=== PATIENT | female | born 1940 | race Caucasian/White ===

== ENCOUNTER 2018-10-07 11:09 | Outpatient (CLI) | payer MEDICARE ==
--- NOTE | 2018-10-07 11:47 | RAD ---
F8 views of the cervical spine INDICATION: Cervicalgia COMPARISON: None FINDINGS: There is prominent disc degenerative disease at C5-6 and C6-7. There is multilevel facet os teoarthritic change. There is very subtle anterior translation of C3 on C4 with flexion that reduces on neutral and extension positioning. No appreciable osseous neural foraminal narrowing is evident. L ateral masses are symmetric. Lung apices are clear. IMPRESSION: [id number] cervical spondylosis. There is mild anterior translation of C3 on C4 wit h flexion that reduces with neutral and extension positioning likely related to degenerative listhesi s.
== END 2018-10-07 11:10 | disposition home or self-care (01) ==
LOC: BICRAD 11:09
PROVIDERS: ATTEND Internal Medicine Rheumatology
DX: M54.2 Cervicalgia (principal); M47.812 Spondylosis without myelopathy or radiculopathy, cervical region
CPT/HCPCS: 72052

== ENCOUNTER 2018-10-11 13:30 | Outpatient (CLI) | payer MEDICARE ==
--- NOTE | 2018-10-11 14:20 | BD ---
EXAM: DEXA bone density examination HISTORY: 78-year-old postmenopausal female for screening COMPARISON: None FINDINGS: L1--bone mineral density 1.268 g/sq cm; T score 2.5 L2--bone mineral density 1.141 g/sq cm; T score 1.0 L3--bone mineral density 1.258 g/sq cm; T score 1.6 L4--bone mineral density 1.318 g/sq cm; T score 2.3 Total L1-L4--bone mineral density 1.248 g/sq cm; T score 1.8 Left femoral neck--bone mineral density0.671; T score -1.6 Total proximal left femur--bone mineral density 0.915; T score -0.2 IMPRESSION: Osteopenia of the left femoral neck. This patient has a 10 year WHO fracture risk of a ma ghislaine osteoporotic fracture of 25% and of a hip fracture of 14%.
== END 2018-10-11 13:31 | disposition home or self-care (01) ==
LOC: BICMAMMO 13:30
PROVIDERS: ATTEND Internal Medicine Rheumatology
DX: M85.852 Other specified disorders of bone density and structure, left thigh (principal)
CPT/HCPCS: 77080

== ENCOUNTER 2021-02-26 22:39 | Inpatient (IN) | payer MEDICARE ==
[2021-02-26 23:25] LABS: #Basophils 0.1 thou/uL (0.0-0.2); #Lymphocytes 0.7 thou/uL (1.20-3.40); #Monocytes 0.5 thou/uL (0.11-0.59); #Neutrophils 2.4 thou/uL (1.40-6.50); %Monocytes 12.5 % (0.0-10.0); %Neutrophils 65.5 % (42.0-75.0); Hemoglobin 13.3 g/dL (12.0-16.0); Mean Corpuscular HGB CONC 34.6 g/dL (32.0-36.0); Mean Corpuscular Hemoglobin 32.5 pg (27.0-31.0); Mean Platelet Volume 6.2 fL (7.4-10.4); Platelet Count 165 thou/uL (130-400); RBC Distribution Width 12.1 % (11.5-14.5); Red Blood Cell (RBC) Count 4.08 mill/uL (4.20-5.40); White Blood Cell (WBC) Count 3.6 thou/uL (4.8-10.8)
[2021-02-26 23:43] LABS: ALT (SGPT) 38 U/L (8-55); AST (SGOT) 59 U/L (5-34); Albumin 3.3 g/dL (3.4-4.8); Alkaline Phosphatase 84 U/L (40-110); Anion Gap 12 mmol/L (10-20); BUN (Urea Nitrogen) 8 mg/dL (9.8-20.1); Bilirubin, Total 0.5 mg/dL (0.2-1.2); Calc. Creatinine Clearance 0 mL/min (70-130); Calcium 8.1 mg/dL (7.8-10.44); Carbon Dioxide 24 mmol/L (23-31); Chloride 95 mmol/L (98-107); Globulin 2.3 g/dL (2.4-3.5); Glucose 118 mg/dL (83-110); Potassium 3.3 mmol/L (3.5-5.1); Protein, Total 5.6 g/dL (5.8-8.1); Sodium 128 mmol/L (136-145)
[2021-02-27] MEDS ORDERED: Aspirin 81 mg Enteric Coated Tablet ONE (02:31)
[2021-02-27] MEDS ORDERED: Dexamethasone 10 MG/ML VIAL ONE (02:31)
[2021-02-27] MEDS ORDERED: Enoxaparin Sodium 80 MG/0.8 ML SYRINGE ONE (02:56)
[2021-02-27] MEDS ORDERED: Aspirin Chewable 81 MG TAB ONE (02:56)
[2021-02-27 03:45] LABS: Troponin I Less than 0.010 ng/mL (< 0.028)
[2021-02-27 06:00] LABS: Troponin I Less than 0.010 ng/mL (< 0.028)
[2021-02-27 06:26] VITALS: BMI 29.8
[2021-02-27] MEDS ORDERED: Ondansetron ODT 4 MG TAB PO PRN (08:34)
[2021-02-27] MEDS ORDERED: Acetaminophen 650 MG Suppository PR PRN (08:34)
[2021-02-27] MEDS ORDERED: Ondansetron PF 4 MG/2 ML Vial IVP PRN (08:34)
[2021-02-27] MEDS ORDERED: Acetaminophen 325 MG TAB PO PRN (08:34)
[2021-02-27] MEDS ORDERED: Benzonatate 100 MG CAP PO PRN (08:40)
[2021-02-27] MEDS ORDERED: Potassium Chloride 20 MEQ TAB PO SCH (08:45)
[2021-02-27 09:33] LABS: CRP (Inflammatory) 10.13 mg/dL (= or < 0.5); Magnesium 2.1 mg/dL (1.6-2.6)
[2021-02-27] MEDS ORDERED: Iopamidol-370 76% 500 ML 1 ML ONE (09:52)
[2021-02-27] MEDS ORDERED: Potassium Chloride 20 MEQ TAB ONE (10:09)
[2021-02-27] MEDS ORDERED: Ascorbic Acid 500 mg Chewable Tablet ONE (10:11)
[2021-02-27] MEDS: Ascorbic Acid 500 mg Chewable Tablet PO SCH (10:24)
[2021-02-27] MEDS: Dexamethasone 6 MG in Sodium Chloride 0.9% 50 ML IVPB SCH ×2 (10:25→20:27)
[2021-02-27] MEDS ORDERED: REMDESIVIR 200 MG in Sodium Chloride 0.9% 250 ML 210 ML IV SCH (11:15)
[2021-02-27] MEDS: Enoxaparin Sodium 40 MG/0.4 ML SYRINGE SC SCH (20:18)
[2021-02-27] MEDS ORDERED: Enoxaparin Sodium 40 MG/0.4 ML SYRINGE SC SCH (21:00)
[2021-02-28 04:43] VITALS: TEMP 98.1
[2021-02-28 07:26] LABS: #Lymphocytes 0.8 thou/uL (1.20-3.40); #Monocytes 0.7 thou/uL (0.11-0.59); #Neutrophils 5.7 thou/uL (1.40-6.50); %Basophils 0.1 % (0.0-1.0); %Eosinophils 0.1 % (0.0-10.0); %Lymphocytes 10.9 % (21.0-51.0); Hemoglobin 14.5 g/dL (12.0-16.0); Mean Corpuscular HGB CONC 33.4 g/dL (32.0-36.0); Mean Corpuscular Hemoglobin 31.7 pg (27.0-31.0); Mean Corpuscular Volume 94.8 fL (78.0-98.0); Mean Platelet Volume 6.6 fL (7.4-10.4); Platelet Count 206 thou/uL (130-400); RBC Distribution Width 11.9 % (11.5-14.5); Red Blood Cell (RBC) Count 4.57 mill/uL (4.20-5.40); White Blood Cell (WBC) Count 7.2 thou/uL (4.8-10.8)
[2021-02-28 07:32] LABS: Anion Gap 14 mmol/L (10-20); BUN (Urea Nitrogen) 8 mg/dL (9.8-20.1); Calc. Creatinine Clearance 84 mL/min (70-130); Carbon Dioxide 24 mmol/L (23-31); Chloride 101 mmol/L (98-107); Glucose 124 mg/dL (83-110); Sodium 135 mmol/L (136-145)
[2021-02-28 08:06] VITALS: BP 114/68
[2021-02-28] MEDS: Ascorbic Acid 500 mg Chewable Tablet PO SCH (08:25)
[2021-02-28] MEDS: Enoxaparin Sodium 40 MG/0.4 ML SYRINGE SC SCH (08:26)
[2021-02-28] MEDS ORDERED: REMDESIVIR 100 MG in Sodium Chloride 0.9% 250 ML 230 ML IV SCH (11:15)
[2021-02-28] MEDS: Dexamethasone 6 MG in Sodium Chloride 0.9% 50 ML IVPB SCH (12:26)
[2021-03-01] MEDS ORDERED: Dexamethasone 4 MG TAB PO SCH (08:00)
[2021-03-01] MEDS ORDERED: Clopidogrel Bisulfate 75 MG TAB PO SCH (09:00)
[2021-03-01] MEDS ORDERED: Aspirin Chewable 81 MG TAB PO SCH (09:00)
== END 2021-02-28 17:18 | disposition home or self-care (01) | DRG 177 ==
LOC: ERS 22:39 → ERHOLD 02-27 01:02 → T4-B 02-27 15:56
PROVIDERS: ADMIT Internal Medicine; ATTEND Student in an Organized Health Care Education/Training Program
PROC: XW033E5 Introduction of Remdesivir Anti-infective into Peripheral Vein, Percutaneous Approach, New Technology Group 5 (ICD-10-PCS; principal; 2021-02-27)
PROC: 8E0ZXY6 Isolation (ICD-10-PCS; 2021-02-27)
DX: U07.1 COVID-19 (principal); J12.82 Pneumonia due to coronavirus disease 2019; E87.1 Hypo-osmolality and hyponatremia; E44.0 Moderate protein-calorie malnutrition; F41.9 Anxiety disorder, unspecified; Z96.651 Presence of right artificial knee joint; E87.6 Hypokalemia; Z96.641 Presence of right artificial hip joint; Z86.718 Personal history of other venous thrombosis and embolism; Z88.1 Allergy status to other antibiotic agents; Z79.82 Long term (current) use of aspirin; Z79.02 Long term (current) use of antithrombotics/antiplatelets; Z68.29 Body mass index [BMI] 29.0-29.9, adult
CPT/HCPCS: 36415; 71045; 71275; 80048; 80053; 82728; 83615; 83735; 83880; 84484; 85025; 85379; 86140; 93005; 96372; 96374; J1100; J1650; Q9967

== ENCOUNTER 2021-03-04 22:15 | Inpatient (IN) | payer MEDICARE ==
[~2021-03-04 22:15] MED LIST: Iopamidol-370 76% 500 ML 1 ML ONE
[2021-03-04 22:49] LABS: Hemoglobin 14.2 g/dL (12.0-16.0); Mean Corpuscular HGB CONC 34.5 g/dL (32.0-36.0); Mean Corpuscular Hemoglobin 32.5 pg (27.0-31.0); Mean Corpuscular Volume 94.2 fL (78.0-98.0); Mean Platelet Volume 5.9 fL (7.4-10.4); Platelet Count 323 thou/uL (130-400); Red Blood Cell (RBC) Count 4.36 mill/uL (4.20-5.40); White Blood Cell (WBC) Count 14.2 thou/uL (4.8-10.8)
[2021-03-04] MEDS ORDERED: Dexamethasone 10 MG/ML VIAL ONE (22:56)
[2021-03-04] MEDS ORDERED: Cefepime 2 GM VIAL ONE (22:57)
[2021-03-04 23:13] LABS: ALT (SGPT) 45 U/L (8-55); AST (SGOT) 43 U/L (5-34); Albumin 3.2 g/dL (3.4-4.8); Alkaline Phosphatase 117 U/L (40-110); Anion Gap 13 mmol/L (10-20); BUN (Urea Nitrogen) 8 mg/dL (9.8-20.1); Bilirubin, Total 0.7 mg/dL (0.2-1.2); Calc. Creatinine Clearance 0 mL/min (70-130); Carbon Dioxide 27 mmol/L (23-31); Chloride 96 mmol/L (98-107); Globulin 3.9 g/dL (2.4-3.5); Glucose 111 mg/dL (83-110); Protein, Total 7.1 g/dL (5.8-8.1); Sodium 131 mmol/L (136-145)
[2021-03-04 23:15] LABS: Band 12 % (5-11); Lymphocytes 12 % (21-51); MDiff Complete? YES; Monocytes 3 % (0-10); Neutrophil 73 % (42-75)
[2021-03-04] MEDS ORDERED: Dextrose 5% in Water 1,000 ML IV PRN (23:55)
[2021-03-04] MEDS ORDERED: Ondansetron PF 4 MG/2 ML Vial IVP PRN (23:55)
[2021-03-04] MEDS ORDERED: HYDROcodone/Acetaminophen 5/325 mg Tablet PO PRN (23:55)
[2021-03-04] MEDS ORDERED: Dextrose 50% Abboject 50 ML SYRINGE SLOW IVP PRN (23:55)
[2021-03-05] MEDS ORDERED: Enoxaparin Sodium 60 MG/0.6 ML SYRINGE SC SCH ×2 (00:30→09:00)
[2021-03-05 02:22] LABS: Hemoglobin 14.7 g/dL (12.0-16.0); Mean Corpuscular HGB CONC 33.9 g/dL (32.0-36.0); Mean Corpuscular Hemoglobin 32.2 pg (27.0-31.0); Mean Corpuscular Volume 94.9 fL (78.0-98.0); Mean Platelet Volume 5.9 fL (7.4-10.4); Platelet Count 247 thou/uL (130-400); RBC Distribution Width 12.2 % (11.5-14.5); Red Blood Cell (RBC) Count 4.56 mill/uL (4.20-5.40); White Blood Cell (WBC) Count 15.7 thou/uL (4.8-10.8)
[2021-03-05 02:26] LABS: Lactic Acid 2.6 mmol/L (0.5-2.2)
[2021-03-05 02:37] LABS: Anion Gap 12 mmol/L (10-20); BUN (Urea Nitrogen) 7 mg/dL (9.8-20.1); BUN/Creatinine Ratio 10.29; Calc. Creatinine Clearance 81 mL/min (70-130); Calcium 8.3 mg/dL (7.8-10.44); Carbon Dioxide 24 mmol/L (23-31); Chloride 102 mmol/L (98-107); Glucose 110 mg/dL (83-110); Phosphorus 2.7 mg/dL (2.3-4.7); Potassium 4.2 mmol/L (3.5-5.1); Sodium 134 mmol/L (136-145)
[2021-03-05] MEDS ORDERED: Enoxaparin Sodium 60 MG/0.6 ML SYRINGE ONE (02:37)
[2021-03-05 03:04] LABS: Band 17 % (5-11); Lymphocytes 3 % (21-51); MDiff Complete? YES; Monocytes 4 % (0-10); Neutrophil 76 % (42-75)
[2021-03-05] MEDS: Aspirin Chewable 81 MG TAB PO SCH (07:57)
[2021-03-05] MEDS: Clopidogrel Bisulfate 75 MG TAB PO SCH (07:58)
[2021-03-05] MEDS: Famotidine 20 MG TAB PO SCH ×2 (07:58→20:07)
[2021-03-05] MEDS ORDERED: BARICITINIB 2 MG TAB PO SCH (18:15)
[2021-03-05] MEDS: Dexamethasone 4 mg/ml Vial SLOW IVP SCH (20:07)
[2021-03-05] MEDS: Enoxaparin Sodium 40 MG/0.4 ML SYRINGE SC SCH (20:08)
[2021-03-06] MEDS: HumaLOG 300 UNITS/3 ML VIAL SC PRN (05:00)
[2021-03-06 07:18] LABS: ALT (SGPT) 46 U/L (8-55); AST (SGOT) 35 U/L (5-34); Albumin 2.9 g/dL (3.4-4.8); Alkaline Phosphatase 116 U/L (40-110); Anion Gap 14 mmol/L (10-20); BUN (Urea Nitrogen) 13 mg/dL (9.8-20.1); Bilirubin, Total 0.7 mg/dL (0.2-1.2); CRP (Inflammatory) 24.64 mg/dL (= or < 0.5); Calc. Creatinine Clearance 80 mL/min (70-130); Calcium 8.7 mg/dL (7.8-10.44); Carbon Dioxide 26 mmol/L (23-31); Chloride 102 mmol/L (98-107); Globulin 3.2 g/dL (2.4-3.5); Glucose 141 mg/dL (83-110); Potassium 4.5 mmol/L (3.5-5.1); Protein, Total 6.1 g/dL (5.8-8.1); Sodium 137 mmol/L (136-145)
[2021-03-06 07:25] LABS: Hemoglobin 13.6 g/dL (12.0-16.0); Mean Corpuscular HGB CONC 32.8 g/dL (32.0-36.0); Mean Corpuscular Hemoglobin 31.4 pg (27.0-31.0); Mean Corpuscular Volume 95.7 fL (78.0-98.0); Mean Platelet Volume 6.1 fL (7.4-10.4); Platelet Count 291 thou/uL (130-400); RBC Distribution Width 12.3 % (11.5-14.5); Red Blood Cell (RBC) Count 4.34 mill/uL (4.20-5.40); White Blood Cell (WBC) Count 13.1 thou/uL (4.8-10.8)
[2021-03-06] MEDS: Enoxaparin Sodium 40 MG/0.4 ML SYRINGE SC SCH ×2 (08:15→21:22)
[2021-03-06] MEDS: Dexamethasone 4 mg/ml Vial SLOW IVP SCH ×2 (08:15→21:22)
[2021-03-06] MEDS: Clopidogrel Bisulfate 75 MG TAB PO SCH (08:16)
[2021-03-06] MEDS: Aspirin Chewable 81 MG TAB PO SCH (08:16)
[2021-03-06] MEDS: Guaifenesin DM 100-10/5 ML UDCUP PO PRN ×2 (08:18→21:22)
[2021-03-06] MEDS: Famotidine 20 MG TAB PO SCH ×2 (08:18→21:23)
[2021-03-06 08:19] LABS: Band 8 % (5-11); Lymphocytes 6 % (21-51); MDiff Complete? YES; Monocytes 1 % (0-10); Myelocyte 1 % (0-0); Neutrophil 84 % (42-75); Platelet Morphology Comment Appears Adequate; RBC Morphology Normal
[2021-03-06] MEDS ORDERED: Colchicine 0.6 MG TAB PO SCH (12:30)
[2021-03-06] MEDS: BARICITINIB 2 MG TAB PO SCH (21:21)
[2021-03-06] MEDS: Colchicine 0.6 MG TAB PO SCH (21:21)
[2021-03-07] MEDS: Guaifenesin DM 100-10/5 ML UDCUP PO PRN ×2 (03:51→20:55)
[2021-03-07 06:29] LABS: #Lymphocytes 0.9 thou/uL (1.20-3.40); #Monocytes 0.6 thou/uL (0.11-0.59); #Neutrophils 13.6 thou/uL (1.40-6.50); %Basophils 0.3 % (0.0-1.0); %Eosinophils 0.1 % (0.0-10.0); %Lymphocytes 5.6 % (21.0-51.0); %Monocytes 3.7 % (0.0-10.0); %Neutrophils 90.3 % (42.0-75.0); Mean Corpuscular HGB CONC 33.2 g/dL (32.0-36.0); Mean Corpuscular Hemoglobin 31.6 pg (27.0-31.0); Mean Corpuscular Volume 95.3 fL (78.0-98.0); Mean Platelet Volume 6.1 fL (7.4-10.4); Platelet Count 303 thou/uL (130-400); RBC Distribution Width 12.1 % (11.5-14.5); Red Blood Cell (RBC) Count 4.11 mill/uL (4.20-5.40); White Blood Cell (WBC) Count 15.1 thou/uL (4.8-10.8)
[2021-03-07 06:43] LABS: ALT (SGPT) 39 U/L (8-55); AST (SGOT) 24 U/L (5-34); Albumin 2.7 g/dL (3.4-4.8); Alkaline Phosphatase 106 U/L (40-110); Anion Gap 12 mmol/L (10-20); BUN (Urea Nitrogen) 14 mg/dL (9.8-20.1); Bilirubin, Total 0.5 mg/dL (0.2-1.2); CRP (Inflammatory) 13.91 mg/dL (= or < 0.5); Calc. Creatinine Clearance 87 mL/min (70-130); Calcium 8.6 mg/dL (7.8-10.44); Carbon Dioxide 25 mmol/L (23-31); Chloride 105 mmol/L (98-107); Globulin 3.2 g/dL (2.4-3.5); Glucose 148 mg/dL (83-110); Potassium 4.5 mmol/L (3.5-5.1); Protein, Total 5.9 g/dL (5.8-8.1); Sodium 137 mmol/L (136-145)
[2021-03-07] MEDS: Aspirin Chewable 81 MG TAB PO SCH (08:16)
[2021-03-07] MEDS: Colchicine 0.6 MG TAB PO SCH ×2 (08:16→20:54)
[2021-03-07] MEDS: Enoxaparin Sodium 40 MG/0.4 ML SYRINGE SC SCH ×2 (08:17→20:55)
[2021-03-07] MEDS: Dexamethasone 4 mg/ml Vial SLOW IVP SCH ×2 (08:17→20:58)
[2021-03-07] MEDS: Clopidogrel Bisulfate 75 MG TAB PO SCH (08:17)
[2021-03-07] MEDS: Famotidine 20 MG TAB PO SCH ×2 (08:17→20:55)
[2021-03-07] MEDS: BARICITINIB 2 MG TAB PO SCH (20:54)
[2021-03-08 06:06] LABS: #Lymphocytes 0.7 thou/uL (1.20-3.40); #Monocytes 0.6 thou/uL (0.11-0.59); #Neutrophils 12.2 thou/uL (1.40-6.50); %Basophils 0.1 % (0.0-1.0); %Eosinophils 0.4 % (0.0-10.0); %Lymphocytes 4.9 % (21.0-51.0); %Monocytes 4.1 % (0.0-10.0); %Neutrophils 90.6 % (42.0-75.0); Hemoglobin 14.2 g/dL (12.0-16.0); Mean Corpuscular HGB CONC 33.9 g/dL (32.0-36.0); Mean Corpuscular Hemoglobin 32.4 pg (27.0-31.0); Mean Corpuscular Volume 95.7 fL (78.0-98.0); Mean Platelet Volume 6.3 fL (7.4-10.4); Platelet Count 294 thou/uL (130-400); RBC Distribution Width 12.1 % (11.5-14.5); Red Blood Cell (RBC) Count 4.37 mill/uL (4.20-5.40); White Blood Cell (WBC) Count 13.4 thou/uL (4.8-10.8)
[2021-03-08 06:29] LABS: ALT (SGPT) 44 U/L (8-55); AST (SGOT) 25 U/L (5-34); Albumin 2.8 g/dL (3.4-4.8); Alkaline Phosphatase 111 U/L (40-110); Anion Gap 14 mmol/L (10-20); BUN (Urea Nitrogen) 18 mg/dL (9.8-20.1); Bilirubin, Total 0.6 mg/dL (0.2-1.2); CRP (Inflammatory) 6.72 mg/dL (= or < 0.5); Calc. Creatinine Clearance 81 mL/min (70-130); Calcium 8.7 mg/dL (7.8-10.44); Carbon Dioxide 25 mmol/L (23-31); Chloride 105 mmol/L (98-107); Globulin 3.5 g/dL (2.4-3.5); Glucose 132 mg/dL (83-110); Potassium 4.8 mmol/L (3.5-5.1); Protein, Total 6.3 g/dL (5.8-8.1); Sodium 139 mmol/L (136-145)
[2021-03-08] MEDS: Guaifenesin DM 100-10/5 ML UDCUP PO PRN ×2 (08:39→21:34)
[2021-03-08] MEDS: Dexamethasone 4 mg/ml Vial SLOW IVP SCH ×2 (08:39→21:33)
[2021-03-08] MEDS: Aspirin Chewable 81 MG TAB PO SCH (08:40)
[2021-03-08] MEDS: Cholecalciferol (Vitamin D3) 400 UNITS TAB PO SCH (08:40)
[2021-03-08] MEDS: Enoxaparin Sodium 40 MG/0.4 ML SYRINGE SC SCH ×2 (08:40→21:34)
[2021-03-08] MEDS: Famotidine 20 MG TAB PO SCH ×2 (08:40→21:34)
[2021-03-08] MEDS: Ascorbic Acid 500 mg Chewable Tablet PO SCH (08:41)
[2021-03-08] MEDS: Clopidogrel Bisulfate 75 MG TAB PO SCH (08:41)
[2021-03-08] MEDS: Zinc Sulfate 220 MG CAP PO SCH (08:41)
[2021-03-08] MEDS: Colchicine 0.6 MG TAB PO SCH ×2 (08:42→21:34)
[2021-03-08] MEDS: BARICITINIB 2 MG TAB PO SCH (21:33)
[2021-03-09] MEDS: Enoxaparin Sodium 40 MG/0.4 ML SYRINGE SC SCH ×2 (07:37→20:54)
[2021-03-09] MEDS: Ascorbic Acid 500 mg Chewable Tablet PO SCH (07:38)
[2021-03-09] MEDS: Zinc Sulfate 220 MG CAP PO SCH (07:38)
[2021-03-09] MEDS: Aspirin Chewable 81 MG TAB PO SCH (07:38)
[2021-03-09] MEDS: Cholecalciferol (Vitamin D3) 400 UNITS TAB PO SCH (07:38)
[2021-03-09] MEDS: Guaifenesin DM 100-10/5 ML UDCUP PO PRN (07:38)
[2021-03-09] MEDS: Colchicine 0.6 MG TAB PO SCH ×2 (07:39→20:55)
[2021-03-09] MEDS: Acetaminophen 325 MG TAB PO PRN (07:39)
[2021-03-09] MEDS: Clopidogrel Bisulfate 75 MG TAB PO SCH (07:39)
[2021-03-09] MEDS: Famotidine 20 MG TAB PO SCH ×2 (07:40→20:54)
[2021-03-09] MEDS: Dexamethasone 4 mg/ml Vial SLOW IVP SCH ×2 (07:40→22:48)
[2021-03-09] MEDS: BARICITINIB 2 MG TAB PO SCH (20:54)
[2021-03-10 06:04] LABS: #Lymphocytes 0.6 thou/uL (1.20-3.40); #Monocytes 0.4 thou/uL (0.11-0.59); #Neutrophils 13.4 thou/uL (1.40-6.50); %Basophils 0.1 % (0.0-1.0); %Eosinophils 0.2 % (0.0-10.0); %Lymphocytes 4.1 % (21.0-51.0); %Monocytes 2.8 % (0.0-10.0); Hemoglobin 14.6 g/dL (12.0-16.0); Mean Corpuscular HGB CONC 33.1 g/dL (32.0-36.0); Mean Corpuscular Hemoglobin 31.3 pg (27.0-31.0); Mean Corpuscular Volume 94.5 fL (78.0-98.0); Mean Platelet Volume 6.1 fL (7.4-10.4); Platelet Count 356 thou/uL (130-400); RBC Distribution Width 12.1 % (11.5-14.5); Red Blood Cell (RBC) Count 4.67 mill/uL (4.20-5.40); White Blood Cell (WBC) Count 14.4 thou/uL (4.8-10.8)
[2021-03-10 06:31] LABS: ALT (SGPT) 42 U/L (8-55); AST (SGOT) 24 U/L (5-34); Albumin 2.9 g/dL (3.4-4.8); Alkaline Phosphatase 117 U/L (40-110); Anion Gap 13 mmol/L (10-20); BUN (Urea Nitrogen) 19 mg/dL (9.8-20.1); Bilirubin, Total 0.5 mg/dL (0.2-1.2); CRP (Inflammatory) 5.61 mg/dL (= or < 0.5); Calc. Creatinine Clearance 89 mL/min (70-130); Calcium 8.7 mg/dL (7.8-10.44); Carbon Dioxide 24 mmol/L (23-31); Chloride 102 mmol/L (98-107); Globulin 3.3 g/dL (2.4-3.5); Glucose 133 mg/dL (83-110); Potassium 4.6 mmol/L (3.5-5.1); Protein, Total 6.2 g/dL (5.8-8.1); Sodium 134 mmol/L (136-145)
[2021-03-10] MEDS: Zinc Sulfate 220 MG CAP PO SCH (08:15)
[2021-03-10] MEDS: Cholecalciferol (Vitamin D3) 400 UNITS TAB PO SCH (08:16)
[2021-03-10] MEDS: Famotidine 20 MG TAB PO SCH ×2 (08:16→20:26)
[2021-03-10] MEDS: Aspirin Chewable 81 MG TAB PO SCH (08:16)
[2021-03-10] MEDS: Ascorbic Acid 500 mg Chewable Tablet PO SCH (08:16)
[2021-03-10] MEDS: Dexamethasone 4 mg/ml Vial SLOW IVP SCH (08:17)
[2021-03-10] MEDS: Clopidogrel Bisulfate 75 MG TAB PO SCH (08:17)
[2021-03-10] MEDS: Colchicine 0.6 MG TAB PO SCH ×2 (08:17→20:25)
[2021-03-10] MEDS: Enoxaparin Sodium 40 MG/0.4 ML SYRINGE SC SCH ×2 (08:18→20:25)
[2021-03-10] MEDS: HumaLOG 300 UNITS/3 ML VIAL SC PRN (17:37)
[2021-03-10] MEDS: BARICITINIB 2 MG TAB PO SCH (20:25)
[2021-03-11 07:40] LABS: ALT (SGPT) 44 U/L (8-55); AST (SGOT) 32 U/L (5-34); Albumin 2.7 g/dL (3.4-4.8); Alkaline Phosphatase 108 U/L (40-110); Anion Gap 12 mmol/L (10-20); BUN (Urea Nitrogen) 22 mg/dL (9.8-20.1); Bilirubin, Total 0.7 mg/dL (0.2-1.2); CRP (Inflammatory) 5.16 mg/dL (= or < 0.5); Calc. Creatinine Clearance 91 mL/min (70-130); Calcium 8.6 mg/dL (7.8-10.44); Carbon Dioxide 27 mmol/L (23-31); Chloride 101 mmol/L (98-107); Globulin 3.4 g/dL (2.4-3.5); Glucose 83 mg/dL (83-110); Potassium 4.5 mmol/L (3.5-5.1); Protein, Total 6.1 g/dL (5.8-8.1); Sodium 135 mmol/L (136-145)
[2021-03-11 07:51] LABS: Hemoglobin 15.4 g/dL (12.0-16.0); Mean Corpuscular Hemoglobin 31.6 pg (27.0-31.0); Mean Corpuscular Volume 95.6 fL (78.0-98.0); Mean Platelet Volume 7.1 fL (7.4-10.4); Platelet Count 379 thou/uL (130-400); RBC Distribution Width 12.4 % (11.5-14.5); Red Blood Cell (RBC) Count 4.89 mill/uL (4.20-5.40); White Blood Cell (WBC) Count 17.9 thou/uL (4.8-10.8)
[2021-03-11] MEDS: Colchicine 0.6 MG TAB PO SCH ×2 (08:18→20:20)
[2021-03-11] MEDS: Aspirin Chewable 81 MG TAB PO SCH (08:18)
[2021-03-11] MEDS: Zinc Sulfate 220 MG CAP PO SCH (08:18)
[2021-03-11] MEDS: Cholecalciferol (Vitamin D3) 400 UNITS TAB PO SCH (08:18)
[2021-03-11] MEDS: Famotidine 20 MG TAB PO SCH ×2 (08:19→20:22)
[2021-03-11] MEDS: Enoxaparin Sodium 40 MG/0.4 ML SYRINGE SC SCH ×2 (08:19→20:21)
[2021-03-11] MEDS: Clopidogrel Bisulfate 75 MG TAB PO SCH (08:19)
[2021-03-11] MEDS: Dexamethasone 4 mg/ml Vial SLOW IVP SCH (08:20)
[2021-03-11] MEDS: Ascorbic Acid 500 mg Chewable Tablet PO SCH (08:21)
[2021-03-11 11:02] LABS: Band 5 % (5-11); Lymphocytes 7 % (21-51); MDiff Complete? YES; Monocytes 3 % (0-10); Neutrophil 85 % (42-75); Platelet Morphology Comment Appears Adequate; Vacuoles SLIGHT
[2021-03-11] MEDS: BARICITINIB 2 MG TAB PO SCH (20:21)
[2021-03-11] MEDS: Zolpidem Tartrate 5 MG TAB PO PRN (20:22)
[2021-03-12 06:28] LABS: #Eosinphils 0.1 thou/uL (0.0-0.7); #Lymphocytes 1.5 thou/uL (1.20-3.40); #Monocytes 0.8 thou/uL (0.11-0.59); #Neutrophils 14.7 thou/uL (1.40-6.50); %Basophils 0.1 % (0.0-1.0); %Eosinophils 0.6 % (0.0-10.0); %Lymphocytes 8.5 % (21.0-51.0); %Monocytes 4.4 % (0.0-10.0); %Neutrophils 86.5 % (42.0-75.0); Hemoglobin 15.5 g/dL (12.0-16.0); Mean Corpuscular HGB CONC 33.3 g/dL (32.0-36.0); Mean Corpuscular Hemoglobin 31.7 pg (27.0-31.0); Mean Corpuscular Volume 95.2 fL (78.0-98.0); Mean Platelet Volume 6.4 fL (7.4-10.4); Platelet Count 393 thou/uL (130-400); RBC Distribution Width 12.2 % (11.5-14.5); Red Blood Cell (RBC) Count 4.88 mill/uL (4.20-5.40)
[2021-03-12] MEDS: Cholecalciferol (Vitamin D3) 400 UNITS TAB PO SCH (08:53)
[2021-03-12] MEDS: Zinc Sulfate 220 MG CAP PO SCH (08:53)
[2021-03-12] MEDS: Clopidogrel Bisulfate 75 MG TAB PO SCH (08:53)
[2021-03-12] MEDS: Ascorbic Acid 500 mg Chewable Tablet PO SCH (08:53)
[2021-03-12] MEDS: Aspirin Chewable 81 MG TAB PO SCH (08:53)
[2021-03-12] MEDS: Famotidine 20 MG TAB PO SCH ×2 (08:54→21:35)
[2021-03-12] MEDS: Colchicine 0.6 MG TAB PO SCH ×2 (08:54→21:35)
[2021-03-12] MEDS: Enoxaparin Sodium 40 MG/0.4 ML SYRINGE SC SCH ×2 (08:54→21:34)
[2021-03-12] MEDS: Dexamethasone 4 mg/ml Vial SLOW IVP SCH ×2 (08:55→21:35)
[2021-03-12 09:02] LABS: ALT (SGPT) 52 U/L (8-55); AST (SGOT) 32 U/L (5-34); Alkaline Phosphatase 125 U/L (40-110); Anion Gap 12 mmol/L (10-20); BUN (Urea Nitrogen) 23 mg/dL (9.8-20.1); Bilirubin, Total 0.6 mg/dL (0.2-1.2); CRP (Inflammatory) 12.97 mg/dL (= or < 0.5); Calc. Creatinine Clearance 79 mL/min (70-130); Calcium 8.9 mg/dL (7.8-10.44); Carbon Dioxide 30 mmol/L (23-31); Chloride 100 mmol/L (98-107); Globulin 3.5 g/dL (2.4-3.5); Glucose 94 mg/dL (83-110); Potassium 4.3 mmol/L (3.5-5.1); Protein, Total 6.5 g/dL (5.8-8.1); Sodium 138 mmol/L (136-145)
[2021-03-12 16:09] LABS: Phosphorus 3.6 mg/dL (2.3-4.7)
[2021-03-12] MEDS: BARICITINIB 2 MG TAB PO SCH (21:34)
[2021-03-12] MEDS: Zolpidem Tartrate 5 MG TAB PO PRN (21:36)
[2021-03-13 09:12] LABS: #Lymphocytes 0.8 thou/uL (1.20-3.40); #Monocytes 0.9 thou/uL (0.11-0.59); #Neutrophils 14.3 thou/uL (1.40-6.50); %Basophils 0.1 % (0.0-1.0); %Eosinophils 0.2 % (0.0-10.0); %Lymphocytes 5.2 % (21.0-51.0); %Monocytes 5.4 % (0.0-10.0); %Neutrophils 89.1 % (42.0-75.0); Hemoglobin 15.1 g/dL (12.0-16.0); Mean Corpuscular HGB CONC 33.1 g/dL (32.0-36.0); Mean Corpuscular Hemoglobin 31.7 pg (27.0-31.0); Mean Corpuscular Volume 95.8 fL (78.0-98.0); Mean Platelet Volume 6.7 fL (7.4-10.4); Platelet Count 384 thou/uL (130-400); RBC Distribution Width 12.5 % (11.5-14.5); Red Blood Cell (RBC) Count 4.75 mill/uL (4.20-5.40); White Blood Cell (WBC) Count 16.1 thou/uL (4.8-10.8)
[2021-03-13] MEDS: Enoxaparin Sodium 40 MG/0.4 ML SYRINGE SC SCH ×2 (09:18→21:32)
[2021-03-13] MEDS: Famotidine 20 MG TAB PO SCH ×2 (09:18→21:32)
[2021-03-13] MEDS: Aspirin Chewable 81 MG TAB PO SCH (09:18)
[2021-03-13] MEDS: Cholecalciferol (Vitamin D3) 400 UNITS TAB PO SCH (09:18)
[2021-03-13] MEDS: Colchicine 0.6 MG TAB PO SCH (09:18)
[2021-03-13] MEDS: Clopidogrel Bisulfate 75 MG TAB PO SCH (09:18)
[2021-03-13] MEDS: Ascorbic Acid 500 mg Chewable Tablet PO SCH (09:18)
[2021-03-13] MEDS: Zinc Sulfate 220 MG CAP PO SCH (09:18)
[2021-03-13] MEDS: Dexamethasone 4 mg/ml Vial SLOW IVP SCH ×2 (09:19→21:32)
[2021-03-13] MEDS: Mometasone 200 MCG/Formoterol 5 MCG 120 PUFF INHALER INH SCH ×2 (09:19→20:33)
[2021-03-13] MEDS ORDERED: Ipratropium Bromide 2.5 ml Neb NEB PRN (09:23)
[2021-03-13] MEDS: BARICITINIB 2 MG TAB PO SCH (21:32)
[2021-03-13] MEDS: Zolpidem Tartrate 5 MG TAB PO PRN (21:32)
[2021-03-14 07:17] LABS: ALT (SGPT) 42 U/L (8-55); AST (SGOT) 22 U/L (5-34); Albumin 2.9 g/dL (3.4-4.8); Alkaline Phosphatase 108 U/L (40-110); Anion Gap 15 mmol/L (10-20); BUN (Urea Nitrogen) 33 mg/dL (9.8-20.1); Bilirubin, Total 0.7 mg/dL (0.2-1.2); Calc. Creatinine Clearance 79 mL/min (70-130); Carbon Dioxide 25 mmol/L (23-31); Chloride 104 mmol/L (98-107); Globulin 3.4 g/dL (2.4-3.5); Glucose 137 mg/dL (83-110); Potassium 4.6 mmol/L (3.5-5.1); Protein, Total 6.3 g/dL (5.8-8.1); Sodium 139 mmol/L (136-145)
[2021-03-14] MEDS: Mometasone 200 MCG/Formoterol 5 MCG 120 PUFF INHALER INH SCH ×2 (07:17→17:15)
[2021-03-14] MEDS: Ascorbic Acid 500 mg Chewable Tablet PO SCH (09:53)
[2021-03-14] MEDS: Dexamethasone 4 mg/ml Vial SLOW IVP SCH ×2 (09:53→21:24)
[2021-03-14] MEDS: Famotidine 20 MG TAB PO SCH ×2 (09:53→21:24)
[2021-03-14] MEDS: Cholecalciferol (Vitamin D3) 400 UNITS TAB PO SCH (09:53)
[2021-03-14] MEDS: Zinc Sulfate 220 MG CAP PO SCH (09:53)
[2021-03-14] MEDS: Enoxaparin Sodium 40 MG/0.4 ML SYRINGE SC SCH ×2 (09:53→21:24)
[2021-03-14] MEDS: Aspirin Chewable 81 MG TAB PO SCH (09:53)
[2021-03-14] MEDS: HumaLOG 300 UNITS/3 ML VIAL SC PRN (11:35)
[2021-03-14] MEDS: Ipratropium Bromide 2.5 ml Neb NEB SCH ×2 (11:54→18:39)
[2021-03-14] MEDS: Metoprolol Tartrate 25 MG TAB PO SCH (14:56)
[2021-03-14] MEDS: BARICITINIB 2 MG TAB PO SCH (21:24)
[2021-03-14] MEDS: ALPRAZolam 0.25 MG TAB PO PRN (21:24)
[2021-03-14] MEDS: Zolpidem Tartrate 5 MG TAB PO PRN (23:09)
[2021-03-15] MEDS: Zinc Sulfate 220 MG CAP PO SCH (09:31)
[2021-03-15] MEDS: Ascorbic Acid 500 mg Chewable Tablet PO SCH (09:31)
[2021-03-15] MEDS: Metoprolol Tartrate 25 MG TAB PO SCH ×2 (09:31→20:09)
[2021-03-15] MEDS: Aspirin Chewable 81 MG TAB PO SCH (09:32)
[2021-03-15] MEDS: Famotidine 20 MG TAB PO SCH ×2 (09:32→20:09)
[2021-03-15] MEDS: Cholecalciferol (Vitamin D3) 400 UNITS TAB PO SCH (09:32)
[2021-03-15] MEDS: Enoxaparin Sodium 40 MG/0.4 ML SYRINGE SC SCH ×2 (09:32→20:07)
[2021-03-15] MEDS: Dexamethasone 4 mg/ml Vial SLOW IVP SCH ×2 (09:33→20:07)
[2021-03-15] MEDS: Mometasone 200 MCG/Formoterol 5 MCG 120 PUFF INHALER INH SCH ×2 (09:36→19:48)
[2021-03-15] MEDS: ALPRAZolam 0.25 MG TAB PO PRN ×2 (11:32→20:08)
[2021-03-15] MEDS: Ipratropium Bromide 2.5 ml Neb NEB SCH ×3 (13:32→19:48)
[2021-03-15] MEDS: Zolpidem Tartrate 5 MG TAB PO PRN (20:08)
[2021-03-15] MEDS: BARICITINIB 2 MG TAB PO SCH (20:13)
[2021-03-16] MEDS: Ipratropium Bromide 2.5 ml Neb NEB SCH ×3 (08:18→18:44)
[2021-03-16 08:25] LABS: Actual Bicarbonate (HCO3a) 27.4 mEq/L (22-28); Base Excess (BEa) 0.6 mEq/L (-2.0 to +3.0); CO2 Tension 52.1 mmHg (35.0-45.0); Calcium, Ionized (arterial) 1.29 mmol/L (1.12-1.30); Carboxyhemoglobin (COHb) 1.3 gm% (0.0-3.0); O2 Tension (PaO2), arterial 70.5 mmHg (> 70.0); Potassium - ABG Lab 4.77 mmol/L (3.70-5.30); pH, Arterial 7.34 (7.35-7.45)
[2021-03-16 08:27] LABS: Puncture Site RRA
[2021-03-16 08:28] LABS: ALV-art Gradient 327.825 mmHg (0-20)
[2021-03-16] MEDS: Mometasone 200 MCG/Formoterol 5 MCG 120 PUFF INHALER INH SCH ×2 (08:30→18:59)
[2021-03-16] MEDS: Ascorbic Acid 500 mg Chewable Tablet PO SCH (10:37)
[2021-03-16] MEDS: Cholecalciferol (Vitamin D3) 400 UNITS TAB PO SCH (10:37)
[2021-03-16] MEDS: Aspirin Chewable 81 MG TAB PO SCH (10:38)
[2021-03-16] MEDS: Enoxaparin Sodium 40 MG/0.4 ML SYRINGE SC SCH ×2 (10:38→20:29)
[2021-03-16] MEDS: Famotidine 20 MG TAB PO SCH ×2 (10:38→20:29)
[2021-03-16] MEDS: Metoprolol Tartrate 25 MG TAB PO SCH ×2 (10:38→20:28)
[2021-03-16] MEDS: Dexamethasone 4 mg/ml Vial SLOW IVP SCH ×2 (10:39→20:30)
[2021-03-16] MEDS: Zinc Sulfate 220 MG CAP PO SCH (10:39)
[2021-03-16] MEDS: Vancomycin HCl 750 MG in Sodium Chloride 0.9% 250 ML 250 ML IVPB SCH (16:44)
[2021-03-16] MEDS: ALPRAZolam 0.25 MG TAB PO SCH ×2 (16:58→20:28)
[2021-03-16] MEDS: BARICITINIB 2 MG TAB PO SCH (20:28)
[2021-03-16] MEDS: Cefepime 2 GM in Sodium Chloride 0.9% 100 ML IVPB SCH (20:36)
[2021-03-16] MEDS ORDERED: Vancomycin 1 GM in Premix Bag 1 BAG IVPB SCH (21:00)
[2021-03-17] MEDS: Vancomycin HCl 750 MG in Sodium Chloride 0.9% 250 ML 250 ML IVPB SCH ×2 (03:26→14:23)
[2021-03-17 04:20] LABS: #Lymphocytes 0.8 thou/uL (1.20-3.40); #Monocytes 0.8 thou/uL (0.11-0.59); #Neutrophils 13.2 thou/uL (1.40-6.50); %Basophils 0.1 % (0.0-1.0); %Eosinophils 0.2 % (0.0-10.0); %Lymphocytes 5.7 % (21.0-51.0); Hemoglobin 14.5 g/dL (12.0-16.0); Mean Corpuscular HGB CONC 32.2 g/dL (32.0-36.0); Mean Corpuscular Hemoglobin 30.8 pg (27.0-31.0); Mean Corpuscular Volume 95.6 fL (78.0-98.0); Mean Platelet Volume 7.1 fL (7.4-10.4); Platelet Count 333 thou/uL (130-400); RBC Distribution Width 12.3 % (11.5-14.5); Red Blood Cell (RBC) Count 4.69 mill/uL (4.20-5.40); White Blood Cell (WBC) Count 14.8 thou/uL (4.8-10.8)
[2021-03-17 04:40] LABS: Anion Gap 12 mmol/L (10-20); BUN (Urea Nitrogen) 35 mg/dL (9.8-20.1); Calc. Creatinine Clearance 85 mL/min (70-130); Calcium 8.9 mg/dL (7.8-10.44); Carbon Dioxide 28 mmol/L (23-31); Chloride 107 mmol/L (98-107); Glucose 142 mg/dL (83-110); Potassium 4.5 mmol/L (3.5-5.1); Sodium 142 mmol/L (136-145)
[2021-03-17] MEDS: Cholecalciferol (Vitamin D3) 400 UNITS TAB PO SCH (07:58)
[2021-03-17] MEDS: Ascorbic Acid 500 mg Chewable Tablet PO SCH (07:58)
[2021-03-17] MEDS: Zinc Sulfate 220 MG CAP PO SCH (07:58)
[2021-03-17] MEDS: Aspirin Chewable 81 MG TAB PO SCH (07:58)
[2021-03-17] MEDS: Metoprolol Tartrate 25 MG TAB PO SCH ×2 (07:58→21:50)
[2021-03-17] MEDS: Famotidine 20 MG TAB PO SCH ×2 (07:58→21:50)
[2021-03-17] MEDS: ALPRAZolam 0.25 MG TAB PO SCH ×2 (07:58→21:50)
[2021-03-17] MEDS: Enoxaparin Sodium 40 MG/0.4 ML SYRINGE SC SCH ×2 (07:59→21:51)
[2021-03-17] MEDS: Dexamethasone 4 mg/ml Vial SLOW IVP SCH ×2 (07:59→21:51)
[2021-03-17] MEDS: Mometasone 200 MCG/Formoterol 5 MCG 120 PUFF INHALER INH SCH ×2 (08:36→19:26)
[2021-03-17] MEDS: Ipratropium Bromide 2.5 ml Neb NEB SCH ×3 (08:36→19:17)
[2021-03-17] MEDS: Cefepime 2 GM in Sodium Chloride 0.9% 100 ML IVPB SCH ×2 (09:59→21:51)
[2021-03-17] MEDS ORDERED: Zolpidem Tartrate 5 MG TAB PO PRN (13:11)
[2021-03-17] MEDS: BARICITINIB 2 MG TAB PO SCH (21:50)
[2021-03-18 02:15] LABS: #Basophils 0.1 thou/uL (0.0-0.2); #Lymphocytes 0.7 thou/uL (1.20-3.40); #Monocytes 0.6 thou/uL (0.11-0.59); #Neutrophils 14.3 thou/uL (1.40-6.50); %Basophils 0.4 % (0.0-1.0); %Eosinophils 0.1 % (0.0-10.0); %Lymphocytes 4.4 % (21.0-51.0); %Monocytes 4.1 % (0.0-10.0); Hemoglobin 14.6 g/dL (12.0-16.0); Mean Corpuscular HGB CONC 33.3 g/dL (32.0-36.0); Mean Corpuscular Volume 96.1 fL (78.0-98.0); Mean Platelet Volume 7.1 fL (7.4-10.4); Platelet Count 321 thou/uL (130-400); RBC Distribution Width 12.4 % (11.5-14.5); Red Blood Cell (RBC) Count 4.56 mill/uL (4.20-5.40); White Blood Cell (WBC) Count 15.7 thou/uL (4.8-10.8)
[2021-03-18 02:33] LABS: Vancomycin, Trough 7.4 ug/mL
[2021-03-18 02:39] LABS: ALT (SGPT) 58 U/L (8-55); AST (SGOT) 28 U/L (5-34); Albumin 3.1 g/dL (3.4-4.8); Alkaline Phosphatase 88 U/L (40-110); Anion Gap 11 mmol/L (10-20); BUN (Urea Nitrogen) 33 mg/dL (9.8-20.1); Bilirubin, Total 0.9 mg/dL (0.2-1.2); CRP (Inflammatory) Less than 0.50 mg/dL (= or < 0.5); Calc. Creatinine Clearance 85 mL/min (70-130); Calcium 8.9 mg/dL (7.8-10.44); Carbon Dioxide 28 mmol/L (23-31); Chloride 108 mmol/L (98-107); Globulin 2.6 g/dL (2.4-3.5); Glucose 149 mg/dL (83-110); Potassium 4.7 mmol/L (3.5-5.1); Protein, Total 5.7 g/dL (5.8-8.1); Sodium 142 mmol/L (136-145)
[2021-03-18] MEDS: Vancomycin HCl 1.25 GM in Sodium Chloride 0.9% 250 ML 250 ML IVPB SCH ×2 (03:11→17:13)
[2021-03-18] MEDS: Cefepime 2 GM in Sodium Chloride 0.9% 100 ML IVPB SCH ×2 (09:57→20:46)
[2021-03-18] MEDS: Enoxaparin Sodium 40 MG/0.4 ML SYRINGE SC SCH ×2 (09:57→20:34)
[2021-03-18] MEDS: Dexamethasone 4 mg/ml Vial SLOW IVP SCH ×2 (09:57→20:34)
[2021-03-18] MEDS: Zinc Sulfate 220 MG CAP PO SCH (09:58)
[2021-03-18] MEDS: Ascorbic Acid 500 mg Chewable Tablet PO SCH (09:58)
[2021-03-18] MEDS: Saccharomyces boulardii 250 MG CAP PO SCH (09:58)
[2021-03-18] MEDS: Famotidine 20 MG TAB PO SCH ×2 (09:58→20:33)
[2021-03-18] MEDS: Metoprolol Tartrate 25 MG TAB PO SCH ×2 (09:58→20:33)
[2021-03-18] MEDS: Aspirin Chewable 81 MG TAB PO SCH (09:58)
[2021-03-18] MEDS: Cholecalciferol (Vitamin D3) 400 UNITS TAB PO SCH (09:58)
[2021-03-18] MEDS: Mometasone 200 MCG/Formoterol 5 MCG 120 PUFF INHALER INH SCH ×2 (10:47→22:20)
[2021-03-18] MEDS: Ipratropium Bromide 2.5 ml Neb NEB SCH ×3 (10:47→22:17)
[2021-03-18] MEDS ORDERED: Furosemide 40 MG/4 ML VIAL SLOW IVP SCH (12:00)
[2021-03-18] MEDS: ALPRAZolam 0.25 MG TAB PO SCH (20:33)
[2021-03-18] MEDS: BARICITINIB 2 MG TAB PO SCH (20:41)
[2021-03-19] MEDS: Vancomycin HCl 1.25 GM in Sodium Chloride 0.9% 250 ML 250 ML IVPB SCH ×2 (02:59→16:34)
[2021-03-19] MEDS: Ipratropium Bromide 2.5 ml Neb NEB SCH ×3 (07:10→18:24)
[2021-03-19] MEDS: Mometasone 200 MCG/Formoterol 5 MCG 120 PUFF INHALER INH SCH ×2 (07:10→18:36)
[2021-03-19] MEDS: Ascorbic Acid 500 mg Chewable Tablet PO SCH (08:48)
[2021-03-19] MEDS: Metoprolol Tartrate 25 MG TAB PO SCH ×2 (08:48→21:42)
[2021-03-19] MEDS: Zinc Sulfate 220 MG CAP PO SCH (08:48)
[2021-03-19] MEDS: Saccharomyces boulardii 250 MG CAP PO SCH (08:48)
[2021-03-19] MEDS: Cholecalciferol (Vitamin D3) 400 UNITS TAB PO SCH (08:48)
[2021-03-19] MEDS: Aspirin Chewable 81 MG TAB PO SCH (08:48)
[2021-03-19] MEDS: Famotidine 20 MG TAB PO SCH ×2 (08:49→21:42)
[2021-03-19] MEDS: Dexamethasone 4 mg/ml Vial SLOW IVP SCH (08:49)
[2021-03-19] MEDS: Enoxaparin Sodium 40 MG/0.4 ML SYRINGE SC SCH ×2 (08:54→21:43)
[2021-03-19] MEDS: Cefepime 2 GM in Sodium Chloride 0.9% 100 ML IVPB SCH (09:28)
[2021-03-19] MEDS: Nystatin 500,000 UNITS/5 ML UDCUP SSW SCH ×3 (12:39→21:43)
[2021-03-19 14:51] LABS: Vancomycin, Trough 16.4 ug/mL
[2021-03-19 15:00] LABS: Band 14 % (5-11); Hemoglobin 15.4 g/dL (12.0-16.0); Lymphocytes 2 % (21-51); MDiff Complete? YES; Mean Corpuscular HGB CONC 32.9 g/dL (32.0-36.0); Mean Corpuscular Hemoglobin 31.4 pg (27.0-31.0); Mean Corpuscular Volume 95.5 fL (78.0-98.0); Monocytes 3 % (0-10); Neutrophil 81 % (42-75); Platelet Count 367 thou/uL (130-400); Platelet Morphology Comment Appears Adequate; RBC Distribution Width 12.4 % (11.5-14.5); RBC Morphology Normal; Red Blood Cell (RBC) Count 4.91 mill/uL (4.20-5.40); White Blood Cell (WBC) Count 19.5 thou/uL (4.8-10.8)
[2021-03-19] MEDS ORDERED: Meropenem 1 GM in Sodium Chloride 0.9% 100 ML IVPB SCH (17:00)
[2021-03-19] MEDS ORDERED: MEROPENEM 1 GM/50 ML 1 GM in Premix Bag 1 BAG IVPB SCH (18:00)
[2021-03-19] MEDS: ALPRAZolam 0.25 MG TAB PO SCH (21:43)
[2021-03-20] MEDS: MEROPENEM 1 GM/50 ML 1 GM in Premix Bag 1 BAG IVPB SCH ×3 (02:11→17:16)
[2021-03-20] MEDS: Vancomycin HCl 1.25 GM in Sodium Chloride 0.9% 250 ML 250 ML IVPB SCH ×2 (03:01→16:02)
[2021-03-20 04:15] LABS: #Eosinphils 0.1 thou/uL (0.0-0.7); #Lymphocytes 1.1 thou/uL (1.20-3.40); #Monocytes 1.5 thou/uL (0.11-0.59); #Neutrophils 16.1 thou/uL (1.40-6.50); %Basophils 0.2 % (0.0-1.0); %Eosinophils 0.4 % (0.0-10.0); %Monocytes 8.1 % (0.0-10.0); %Neutrophils 85.2 % (42.0-75.0); Mean Corpuscular HGB CONC 32.5 g/dL (32.0-36.0); Mean Corpuscular Hemoglobin 31.1 pg (27.0-31.0); Mean Corpuscular Volume 95.9 fL (78.0-98.0); Mean Platelet Volume 7.2 fL (7.4-10.4); Platelet Count 366 thou/uL (130-400); RBC Distribution Width 12.5 % (11.5-14.5); Red Blood Cell (RBC) Count 4.81 mill/uL (4.20-5.40); White Blood Cell (WBC) Count 18.9 thou/uL (4.8-10.8)
[2021-03-20 05:44] LABS: ALT (SGPT) 63 U/L (8-55); AST (SGOT) 23 U/L (5-34); Albumin 3.1 g/dL (3.4-4.8); Alkaline Phosphatase 85 U/L (40-110); Anion Gap 11 mmol/L (10-20); BUN (Urea Nitrogen) 34 mg/dL (9.8-20.1); Bilirubin, Total 0.9 mg/dL (0.2-1.2); CRP (Inflammatory) Less than 0.50 mg/dL (= or < 0.5); Calc. Creatinine Clearance 94 mL/min (70-130); Calcium 8.6 mg/dL (7.8-10.44); Carbon Dioxide 27 mmol/L (23-31); Chloride 107 mmol/L (98-107); Globulin 2.5 g/dL (2.4-3.5); Glucose 97 mg/dL (83-110); Potassium 4.1 mmol/L (3.5-5.1); Protein, Total 5.6 g/dL (5.8-8.1); Sodium 141 mmol/L (136-145)
[2021-03-20] MEDS: Mometasone 200 MCG/Formoterol 5 MCG 120 PUFF INHALER INH SCH ×2 (08:29→18:32)
[2021-03-20] MEDS: Ipratropium Bromide 2.5 ml Neb NEB SCH ×3 (08:29→18:15)
[2021-03-20] MEDS ORDERED: Dexamethasone 10 MG in Sodium Chloride 0.9% 50 ML IVPB SCH (09:00)
[2021-03-20] MEDS: Ascorbic Acid 500 mg Chewable Tablet PO SCH (10:07)
[2021-03-20] MEDS: Famotidine 20 MG TAB PO SCH ×2 (10:08→20:15)
[2021-03-20] MEDS: Nystatin 500,000 UNITS/5 ML UDCUP SSW SCH ×4 (10:08→20:16)
[2021-03-20] MEDS: Zinc Sulfate 220 MG CAP PO SCH (10:08)
[2021-03-20] MEDS: Cholecalciferol (Vitamin D3) 400 UNITS TAB PO SCH (10:08)
[2021-03-20] MEDS: Metoprolol Tartrate 25 MG TAB PO SCH ×2 (10:08→20:16)
[2021-03-20] MEDS: Saccharomyces boulardii 250 MG CAP PO SCH (10:08)
[2021-03-20] MEDS: Aspirin Chewable 81 MG TAB PO SCH (10:08)
[2021-03-20] MEDS: Polyethylene Glycol 3350 17 GM Packet PO PRN (10:09)
[2021-03-20] MEDS: Dexamethasone 4 mg/ml Vial SLOW IVP SCH (10:10)
[2021-03-20] MEDS: Enoxaparin Sodium 40 MG/0.4 ML SYRINGE SC SCH ×2 (10:10→20:16)
[2021-03-20] MEDS ORDERED: Budesonide 0.5 MG/2 ML NEB ONE (15:02)
[2021-03-20] MEDS: Acetaminophen 325 MG TAB PO PRN (20:15)
[2021-03-20] MEDS: Senokot S 8.6-50 MG TAB PO SCH (20:15)
[2021-03-20] MEDS: ALPRAZolam 0.25 MG TAB PO SCH (20:16)
[2021-03-21] MEDS: VANCOMYCIN 1.25 GM/250 ML BAG 1.25 GM in Premix Bag 1 BAG IVPB SCH ×2 (02:03→15:31)
[2021-03-21] MEDS: MEROPENEM 1 GM/50 ML 1 GM in Premix Bag 1 BAG IVPB SCH ×3 (02:03→18:50)
[2021-03-21 04:11] LABS: #Eosinphils 0.1 thou/uL (0.0-0.7); #Lymphocytes 1.2 thou/uL (1.20-3.40); #Monocytes 1.4 thou/uL (0.11-0.59); #Neutrophils 15.6 thou/uL (1.40-6.50); %Basophils 0.1 % (0.0-1.0); %Eosinophils 0.8 % (0.0-10.0); %Lymphocytes 6.6 % (21.0-51.0); %Monocytes 7.5 % (0.0-10.0); Hemoglobin 15.2 g/dL (12.0-16.0); Mean Corpuscular HGB CONC 32.3 g/dL (32.0-36.0); Mean Corpuscular Hemoglobin 31.3 pg (27.0-31.0); Mean Corpuscular Volume 96.9 fL (78.0-98.0); Mean Platelet Volume 7.1 fL (7.4-10.4); Platelet Count 288 thou/uL (130-400); RBC Distribution Width 12.6 % (11.5-14.5); Red Blood Cell (RBC) Count 4.86 mill/uL (4.20-5.40); White Blood Cell (WBC) Count 18.4 thou/uL (4.8-10.8)
[2021-03-21] MEDS: Ipratropium Bromide 2.5 ml Neb NEB SCH ×3 (08:35→19:28)
[2021-03-21] MEDS: Mometasone 200 MCG/Formoterol 5 MCG 120 PUFF INHALER INH SCH ×3 (08:37→18:52)
[2021-03-21] MEDS: ALPRAZolam 0.25 MG TAB PO PRN (09:08)
[2021-03-21] MEDS: Cholecalciferol (Vitamin D3) 400 UNITS TAB PO SCH (09:10)
[2021-03-21] MEDS: Nystatin 500,000 UNITS/5 ML UDCUP SSW SCH ×4 (09:10→21:09)
[2021-03-21] MEDS: Senokot S 8.6-50 MG TAB PO SCH ×2 (09:10→21:09)
[2021-03-21] MEDS: Ascorbic Acid 500 mg Chewable Tablet PO SCH (09:10)
[2021-03-21] MEDS: Metoprolol Tartrate 25 MG TAB PO SCH ×2 (09:11→21:09)
[2021-03-21] MEDS: Famotidine 20 MG TAB PO SCH ×2 (09:11→21:09)
[2021-03-21] MEDS: Aspirin Chewable 81 MG TAB PO SCH (09:11)
[2021-03-21] MEDS: Saccharomyces boulardii 250 MG CAP PO SCH (09:11)
[2021-03-21] MEDS: Acetaminophen 325 MG TAB PO PRN (09:12)
[2021-03-21] MEDS: Enoxaparin Sodium 40 MG/0.4 ML SYRINGE SC SCH ×2 (09:12→21:10)
[2021-03-21] MEDS: Zinc Sulfate 220 MG CAP PO SCH (09:12)
[2021-03-21] MEDS: Dexamethasone 4 mg/ml Vial SLOW IVP SCH (09:13)
[2021-03-21 14:49] LABS: Vancomycin, Trough 15.9 ug/mL
[2021-03-21] MEDS ORDERED: Furosemide 40 MG/4 ML VIAL SLOW IVP SCH (17:00)
[2021-03-21] MEDS: ALPRAZolam 0.25 MG TAB PO SCH (21:09)
[2021-03-22] MEDS: MEROPENEM 1 GM/50 ML 1 GM in Premix Bag 1 BAG IVPB SCH ×3 (01:11→18:00)
[2021-03-22] MEDS: VANCOMYCIN 1.25 GM/250 ML BAG 1.25 GM in Premix Bag 1 BAG IVPB SCH ×2 (03:55→15:00)
[2021-03-22] MEDS: Mometasone 200 MCG/Formoterol 5 MCG 120 PUFF INHALER INH SCH (05:38)
[2021-03-22 06:11] LABS: Hemoglobin 15.6 g/dL (12.0-16.0); Mean Corpuscular HGB CONC 31.5 g/dL (32.0-36.0); Mean Corpuscular Hemoglobin 30.8 pg (27.0-31.0); Mean Corpuscular Volume 97.7 fL (78.0-98.0); Mean Platelet Volume 7.2 fL (7.4-10.4); Platelet Count 286 thou/uL (130-400); RBC Distribution Width 12.6 % (11.5-14.5); Red Blood Cell (RBC) Count 5.07 mill/uL (4.20-5.40); White Blood Cell (WBC) Count 20.6 thou/uL (4.8-10.8)
[2021-03-22 06:26] LABS: ALT (SGPT) 46 U/L (8-55); AST (SGOT) 26 U/L (5-34); Albumin 2.9 g/dL (3.4-4.8); Alkaline Phosphatase 86 U/L (40-110); Anion Gap 14 mmol/L (10-20); BUN (Urea Nitrogen) 26 mg/dL (9.8-20.1); Bilirubin, Total 0.5 mg/dL (0.2-1.2); Calc. Creatinine Clearance 102 mL/min (70-130); Calcium 8.6 mg/dL (7.8-10.44); Carbon Dioxide 26 mmol/L (23-31); Chloride 106 mmol/L (98-107); Globulin 2.8 g/dL (2.4-3.5); Glucose 106 mg/dL (83-110); Potassium 4.6 mmol/L (3.5-5.1); Protein, Total 5.7 g/dL (5.8-8.1); Sodium 141 mmol/L (136-145)
[2021-03-22 06:48] LABS: MDiff Complete? YES
[2021-03-22 06:49] LABS: Band 4 % (5-11); Lymphocytes 15 % (21-51); Monocytes 10 % (0-10); Neutrophil 71 % (42-75); Platelet Morphology Comment Appears Adequate; RBC Morphology Normal
[2021-03-22] MEDS: Dexamethasone 4 mg/ml Vial SLOW IVP SCH (08:02)
[2021-03-22] MEDS: Nystatin 500,000 UNITS/5 ML UDCUP SSW SCH ×4 (08:02→20:55)
[2021-03-22] MEDS: Zinc Sulfate 220 MG CAP PO SCH (08:03)
[2021-03-22] MEDS: Cholecalciferol (Vitamin D3) 400 UNITS TAB PO SCH (08:03)
[2021-03-22] MEDS: Ascorbic Acid 500 mg Chewable Tablet PO SCH (08:03)
[2021-03-22] MEDS: Famotidine 20 MG TAB PO SCH ×2 (08:03→20:55)
[2021-03-22] MEDS: Enoxaparin Sodium 40 MG/0.4 ML SYRINGE SC SCH ×2 (08:03→20:55)
[2021-03-22] MEDS: Saccharomyces boulardii 250 MG CAP PO SCH (08:03)
[2021-03-22] MEDS: Senokot S 8.6-50 MG TAB PO SCH ×2 (08:03→20:55)
[2021-03-22] MEDS: Metoprolol Tartrate 25 MG TAB PO SCH ×2 (08:03→20:55)
[2021-03-22] MEDS: Aspirin Chewable 81 MG TAB PO SCH (08:03)
[2021-03-22] MEDS: ALPRAZolam 0.25 MG TAB PO PRN (08:05)
[2021-03-22] MEDS: Ipratropium Bromide 2.5 ml Neb NEB SCH ×3 (08:29→19:12)
[2021-03-22] MEDS: Polyethylene Glycol 3350 17 GM Packet PO PRN (20:55)
[2021-03-22] MEDS: ALPRAZolam 0.25 MG TAB PO SCH (20:55)
[2021-03-23] MEDS: Mometasone 200 MCG/Formoterol 5 MCG 120 PUFF INHALER INH SCH ×3 (07:57→19:09)
[2021-03-23] MEDS: VANCOMYCIN 1.25 GM/250 ML BAG 1.25 GM in Premix Bag 1 BAG IVPB SCH ×3 (07:58→16:04)
[2021-03-23] MEDS: MEROPENEM 1 GM/50 ML 1 GM in Premix Bag 1 BAG IVPB SCH ×3 (07:58→17:05)
[2021-03-23] MEDS: Saccharomyces boulardii 250 MG CAP PO SCH (08:54)
[2021-03-23] MEDS: Ascorbic Acid 500 mg Chewable Tablet PO SCH (08:54)
[2021-03-23] MEDS: Famotidine 20 MG TAB PO SCH ×2 (08:54→20:45)
[2021-03-23] MEDS: Metoprolol Tartrate 25 MG TAB PO SCH ×2 (08:54→20:46)
[2021-03-23] MEDS: Aspirin Chewable 81 MG TAB PO SCH (08:54)
[2021-03-23] MEDS: Senokot S 8.6-50 MG TAB PO SCH ×2 (08:55→20:45)
[2021-03-23] MEDS: Cholecalciferol (Vitamin D3) 400 UNITS TAB PO SCH (08:55)
[2021-03-23] MEDS: Zinc Sulfate 220 MG CAP PO SCH (08:55)
[2021-03-23] MEDS: Dexamethasone 4 mg/ml Vial SLOW IVP SCH (08:56)
[2021-03-23] MEDS: Polyethylene Glycol 3350 17 GM Packet PO PRN (08:57)
[2021-03-23] MEDS: Enoxaparin Sodium 40 MG/0.4 ML SYRINGE SC SCH ×2 (08:57→20:46)
[2021-03-23] MEDS: ALPRAZolam 0.25 MG TAB PO SCH (09:00)
[2021-03-23] MEDS: Nystatin 500,000 UNITS/5 ML UDCUP SSW SCH ×4 (09:00→20:45)
[2021-03-23 10:47] LABS: #Eosinphils 0.2 thou/uL (0.0-0.7); #Monocytes 1.5 thou/uL (0.11-0.59); #Neutrophils 16.2 thou/uL (1.40-6.50); %Eosinophils 0.9 % (0.0-10.0); %Lymphocytes 5.3 % (21.0-51.0); %Monocytes 7.8 % (0.0-10.0); Hemoglobin 16.1 g/dL (12.0-16.0); Mean Corpuscular Hemoglobin 30.4 pg (27.0-31.0); Mean Corpuscular Volume 98.1 fL (78.0-98.0); Mean Platelet Volume 7.2 fL (7.4-10.4); Platelet Count 303 thou/uL (130-400); RBC Distribution Width 12.8 % (11.5-14.5); Red Blood Cell (RBC) Count 5.28 mill/uL (4.20-5.40); White Blood Cell (WBC) Count 18.8 thou/uL (4.8-10.8)
[2021-03-23] MEDS: Ipratropium Bromide 2.5 ml Neb NEB SCH ×3 (11:03→19:05)
[2021-03-23] MEDS ORDERED: Magnesium Citrate 300 ML BOT PO SCH (11:45)
[2021-03-23] MEDS ORDERED: Vancomycin HCl 1.25 GM in Sodium Chloride 0.9% 250 ML 250 ML IVPB SCH ×2 (15:00→16:15)
[2021-03-23 15:22] LABS: Vancomycin, Trough 39.2 ug/mL
[2021-03-23] MEDS: ALPRAZolam 0.25 MG TAB PO PRN (20:45)
[2021-03-24] MEDS: MEROPENEM 1 GM/50 ML 1 GM in Premix Bag 1 BAG IVPB SCH ×3 (02:08→16:47)
[2021-03-24] MEDS: Acetaminophen 325 MG TAB PO PRN (02:13)
[2021-03-24] MEDS: Ipratropium Bromide 2.5 ml Neb NEB SCH ×3 (07:55→19:18)
[2021-03-24] MEDS: Mometasone 200 MCG/Formoterol 5 MCG 120 PUFF INHALER INH SCH ×2 (08:09→19:19)
[2021-03-24] MEDS: Senokot S 8.6-50 MG TAB PO SCH ×2 (08:19→21:15)
[2021-03-24] MEDS: Dexamethasone 4 mg/ml Vial SLOW IVP SCH (08:19)
[2021-03-24] MEDS: Zinc Sulfate 220 MG CAP PO SCH (08:19)
[2021-03-24] MEDS: Metoprolol Tartrate 25 MG TAB PO SCH ×2 (08:19→21:15)
[2021-03-24] MEDS: Famotidine 20 MG TAB PO SCH ×2 (08:19→21:15)
[2021-03-24] MEDS: Polyethylene Glycol 3350 17 GM Packet PO PRN (08:19)
[2021-03-24] MEDS: Enoxaparin Sodium 40 MG/0.4 ML SYRINGE SC SCH ×2 (08:19→21:16)
[2021-03-24] MEDS: Cholecalciferol (Vitamin D3) 400 UNITS TAB PO SCH (08:19)
[2021-03-24] MEDS: Nystatin 500,000 UNITS/5 ML UDCUP SSW SCH ×4 (08:19→21:16)
[2021-03-24] MEDS: Ascorbic Acid 500 mg Chewable Tablet PO SCH (08:19)
[2021-03-24] MEDS: Aspirin Chewable 81 MG TAB PO SCH (08:20)
[2021-03-24] MEDS: Saccharomyces boulardii 250 MG CAP PO SCH (08:20)
[2021-03-24] MEDS: ALPRAZolam 0.25 MG TAB PO PRN (08:20)
[2021-03-24] MEDS ORDERED: Bisacodyl 10 MG SUPP PR SCH ×2 (12:30→12:45)
[2021-03-24] MEDS: HumaLOG 300 UNITS/3 ML VIAL SC PRN (13:04)
[2021-03-24 15:29] LABS: Vancomycin, Trough 11.8 ug/mL
[2021-03-24] MEDS: Vancomycin HCl 1.25 GM in Sodium Chloride 0.9% 250 ML 250 ML IVPB SCH (16:47)
[2021-03-24] MEDS: ALPRAZolam 0.25 MG TAB PO SCH (21:15)
[2021-03-24] MEDS: Hydrocortisone Acetate 25 MG Suppository PR SCH (21:16)
[2021-03-25] MEDS: MEROPENEM 1 GM/50 ML 1 GM in Premix Bag 1 BAG IVPB SCH ×3 (02:16→18:26)
[2021-03-25] MEDS: Vancomycin HCl 1.25 GM in Sodium Chloride 0.9% 250 ML 250 ML IVPB SCH ×2 (03:37→15:26)
[2021-03-25] MEDS: Ipratropium Bromide 2.5 ml Neb NEB SCH ×3 (07:17→20:29)
[2021-03-25] MEDS: Mometasone 200 MCG/Formoterol 5 MCG 120 PUFF INHALER INH SCH ×2 (07:26→20:30)
[2021-03-25] MEDS: Acetaminophen 325 MG TAB PO PRN ×3 (08:57→20:27)
[2021-03-25] MEDS: ALPRAZolam 0.25 MG TAB PO PRN (08:57)
[2021-03-25] MEDS: Senokot S 8.6-50 MG TAB PO SCH ×2 (08:59→20:26)
[2021-03-25] MEDS: Aspirin Chewable 81 MG TAB PO SCH (08:59)
[2021-03-25] MEDS: Enoxaparin Sodium 40 MG/0.4 ML SYRINGE SC SCH ×2 (08:59→20:29)
[2021-03-25] MEDS: Ascorbic Acid 500 mg Chewable Tablet PO SCH (08:59)
[2021-03-25] MEDS: Saccharomyces boulardii 250 MG CAP PO SCH (08:59)
[2021-03-25] MEDS: Cholecalciferol (Vitamin D3) 400 UNITS TAB PO SCH (08:59)
[2021-03-25] MEDS: Nystatin 500,000 UNITS/5 ML UDCUP SSW SCH ×4 (09:00→19:39)
[2021-03-25] MEDS: Famotidine 20 MG TAB PO SCH ×2 (09:00→20:26)
[2021-03-25] MEDS: Dexamethasone 4 mg/ml Vial SLOW IVP SCH (09:00)
[2021-03-25] MEDS: Zinc Sulfate 220 MG CAP PO SCH (09:00)
[2021-03-25] MEDS: Metoprolol Tartrate 25 MG TAB PO SCH ×2 (09:00→20:13)
[2021-03-25] MEDS: Hydrocortisone Acetate 25 MG Suppository PR SCH ×3 (09:01→20:33)
[2021-03-25 10:01] LABS: #Eosinphils 0.3 thou/uL (0.0-0.7); #Lymphocytes 0.8 thou/uL (1.20-3.40); #Monocytes 1.6 thou/uL (0.11-0.59); #Neutrophils 15.3 thou/uL (1.40-6.50); %Basophils 0.2 % (0.0-1.0); %Eosinophils 1.4 % (0.0-10.0); %Lymphocytes 4.6 % (21.0-51.0); %Monocytes 8.8 % (0.0-10.0); %Neutrophils 84.9 % (42.0-75.0); Hemoglobin 14.7 g/dL (12.0-16.0); Mean Corpuscular HGB CONC 32.4 g/dL (32.0-36.0); Mean Corpuscular Hemoglobin 31.8 pg (27.0-31.0); Mean Corpuscular Volume 98.2 fL (78.0-98.0); Mean Platelet Volume 6.8 fL (7.4-10.4); Platelet Count 371 thou/uL (130-400); RBC Distribution Width 12.7 % (11.5-14.5); Red Blood Cell (RBC) Count 4.64 mill/uL (4.20-5.40)
[2021-03-25] MEDS ORDERED: Mineral Oil ENEMA PR SCH (11:00)
[2021-03-25] MEDS: Ketorolac Tromethamine 30 MG/ML VIAL IVP PRN ×2 (14:23→20:27)
[2021-03-25] MEDS: ALPRAZolam 0.25 MG TAB PO SCH (20:27)
[2021-03-26] MEDS: MEROPENEM 1 GM/50 ML 1 GM in Premix Bag 1 BAG IVPB SCH ×2 (01:36→08:44)
[2021-03-26 05:01] LABS: Calc. Creatinine Clearance 98 mL/min (70-130)
[2021-03-26 05:02] LABS: Vancomycin, Trough 17.3 ug/mL
[2021-03-26 05:14] LABS: Hemoglobin 15.1 g/dL (12.0-16.0); Lymphocytes 5 % (21-51); MDiff Complete? YES; Macrocytosis SLIGHT = 6-15 cells (100X) (0-5/hpf); Mean Corpuscular HGB CONC 31.3 g/dL (32.0-36.0); Mean Corpuscular Hemoglobin 31.1 pg (27.0-31.0); Mean Corpuscular Volume 99.5 fL (78.0-98.0); Mean Platelet Volume 6.7 fL (7.4-10.4); Monocytes 9 % (0-10); Neutrophil 85 % (42-75); Platelet Count 254 thou/uL (130-400); Platelet Morphology Comment Appears Adequate; Reactive Lymphocytes 1 % (0-10); Red Blood Cell (RBC) Count 4.85 mill/uL (4.20-5.40); White Blood Cell (WBC) Count 14.1 thou/uL (4.8-10.8)
[2021-03-26] MEDS: Vancomycin HCl 1.25 GM in Sodium Chloride 0.9% 250 ML 250 ML IVPB SCH (05:25)
[2021-03-26] MEDS: Mometasone 200 MCG/Formoterol 5 MCG 120 PUFF INHALER INH SCH ×2 (08:00→19:09)
[2021-03-26] MEDS: Ipratropium Bromide 2.5 ml Neb NEB SCH ×3 (08:01→19:07)
[2021-03-26] MEDS: Ascorbic Acid 500 mg Chewable Tablet PO SCH (08:42)
[2021-03-26] MEDS: Famotidine 20 MG TAB PO SCH ×2 (08:43→21:24)
[2021-03-26] MEDS: Senokot S 8.6-50 MG TAB PO SCH ×2 (08:43→21:24)
[2021-03-26] MEDS: Metoprolol Tartrate 25 MG TAB PO SCH ×2 (08:43→21:15)
[2021-03-26] MEDS: Zinc Sulfate 220 MG CAP PO SCH (08:43)
[2021-03-26] MEDS: Saccharomyces boulardii 250 MG CAP PO SCH (08:43)
[2021-03-26] MEDS: Dexamethasone 4 mg/ml Vial SLOW IVP SCH (08:43)
[2021-03-26] MEDS: Cholecalciferol (Vitamin D3) 400 UNITS TAB PO SCH (08:43)
[2021-03-26] MEDS: Aspirin Chewable 81 MG TAB PO SCH (08:43)
[2021-03-26] MEDS: Enoxaparin Sodium 40 MG/0.4 ML SYRINGE SC SCH ×2 (08:44→21:21)
[2021-03-26] MEDS: Nystatin 500,000 UNITS/5 ML UDCUP SSW SCH ×4 (08:44→21:20)
[2021-03-26] MEDS: Acetaminophen 325 MG TAB PO PRN ×2 (08:45→16:58)
[2021-03-26] MEDS: Hydrocortisone Acetate 25 MG Suppository PR SCH ×3 (08:45→21:14)
[2021-03-26] MEDS ORDERED: ALPRAZolam 0.25 MG TAB PO SCH (21:00)
[2021-03-27] MEDS: Acetaminophen 325 MG TAB PO PRN (00:13)
[2021-03-27 05:36] LABS: Actual Bicarbonate (HCO3a) 45.3 mEq/L (22-28); Base Excess (BEa) 15.2 mEq/L (-2.0 to +3.0); Calcium, Ionized (arterial) 1.21 mmol/L (1.12-1.30); Carboxyhemoglobin (COHb) 1.4 gm% (0.0-3.0); Hemoglobin (Hb) 14.1 g/dL (12.0-16.0); Potassium - ABG Lab 4.29 mmol/L (3.70-5.30); pH, Arterial 7.34 (7.35-7.45)
[2021-03-27] MEDS: Mometasone 200 MCG/Formoterol 5 MCG 120 PUFF INHALER INH SCH ×2 (07:16→18:15)
[2021-03-27] MEDS: Ipratropium Bromide 2.5 ml Neb NEB SCH ×3 (07:18→18:16)
[2021-03-27] MEDS ORDERED: Propofol 1,000 MG/100 ML VIAL IV ONE ×2 (07:50→08:46)
[2021-03-27 08:06] LABS: Actual Bicarbonate (HCO3a) 47.7 mEq/L (22-28); Base Excess (BEa) 9.8 mEq/L (-2.0 to +3.0); Carboxyhemoglobin (COHb) 1.5 gm% (0.0-3.0); Hemoglobin (Hb) 14.5 g/dL (12.0-16.0); O2 Tension (PaO2), arterial 107.6 mmHg (> 70.0); Potassium - ABG Lab 4.67 mmol/L (3.70-5.30)
[2021-03-27 08:07] LABS: CO2 Tension 186.1 mmHg (35.0-45.0); pH, Arterial 7.03 (7.35-7.45)
[2021-03-27 08:08] LABS: ALV-art Gradient 158.875 mmHg (0-20); Puncture Site LRA
[2021-03-27] MEDS ORDERED: Naloxone HCl 0.4 mg/ml Vial ONE (08:10)
[2021-03-27] MEDS ORDERED: Norepinephrine 8 MG/0.9% NS 250 ML ONE (08:26)
[2021-03-27] MEDS: Lorazepam 2 MG/ML VIAL SLOW IVP PRN (08:30)
[2021-03-27] MEDS: Propofol 1,000 MG/100 ML VIAL IV PRN ×2 (08:30→20:35)
[2021-03-27] MEDS ORDERED: Lorazepam 2 MG/ML VIAL ONE (08:34)
[2021-03-27] MEDS ORDERED: Propofol 1,000 MG/100 ML VIAL IV PRN (08:43)
[2021-03-27] MEDS ORDERED: Fentanyl CADD 100 ML ONE (08:44)
[2021-03-27] MEDS ORDERED: fentaNYL Citrate/PF 2,000 MCG in Sodium Chloride 0.9% 60 ML IV PRN (08:44)
[2021-03-27] MEDS: Fentanyl CADD 100 ML IV SCH (08:45)
[2021-03-27] MEDS ORDERED: Ventilator Sedation Protocol 1 EACH FS SCH (08:45)
[2021-03-27] MEDS ORDERED: Morphine 2 MG/ML VIAL SLOW IVP PRN (09:00)
[2021-03-27] MEDS ORDERED: DISCONTINUE PREVIOUS NARCOTIC PAIN MEDICATIONS AND BENZODIAZEPINES FS SCH (09:00)
[2021-03-27] MEDS ORDERED: Fentanyl BOLUS 250 ML IVPB PRN (09:00)
[2021-03-27] MEDS ORDERED: Propofol BOLUS 1,000 MG/100 ML VIAL IV PRN (09:00)
[2021-03-27] MEDS ORDERED: PROPOFOL 200 MG/20 ML VIAL ONE (09:00)
[2021-03-27] MEDS: Norepinephrine 8 MG/0.9% NS 250 ML IVPB PRN (09:14)
[2021-03-27 09:33] LABS: Actual Bicarbonate (HCO3a) 40.3 mEq/L (22-28); Base Excess (BEa) 10.6 mEq/L (-2.0 to +3.0); CO2 Tension 83.5 mmHg (35.0-45.0); Calcium, Ionized (arterial) 1.18 mmol/L (1.12-1.30); Carboxyhemoglobin (COHb) 1.3 gm% (0.0-3.0); Hemoglobin (Hb) 13.2 g/dL (12.0-16.0)
[2021-03-27 09:34] LABS: ALV-art Gradient 140.225 mmHg (0-20); O2 Tension (PaO2), arterial 40.6 mmHg (> 70.0); Puncture Site RBA
[2021-03-27] MEDS: Nystatin 500,000 UNITS/5 ML UDCUP SSW SCH ×4 (10:28→20:42)
[2021-03-27] MEDS: Metoprolol Tartrate 25 MG TAB PO SCH ×3 (10:28→20:41)
[2021-03-27] MEDS: Senokot S 8.6-50 MG TAB PO SCH ×2 (10:28→20:36)
[2021-03-27] MEDS ORDERED: acetaZOLAMIDE Sodium 500 mg Vial IVP SCH (10:30)
[2021-03-27 10:32] LABS: #Eosinphils 0.1 thou/uL (0.0-0.7); #Lymphocytes 0.4 thou/uL (1.20-3.40); #Monocytes 1.2 thou/uL (0.11-0.59); #Neutrophils 17.5 thou/uL (1.40-6.50); %Basophils 0.1 % (0.0-1.0); %Eosinophils 0.3 % (0.0-10.0); %Lymphocytes 2.3 % (21.0-51.0); %Monocytes 6.2 % (0.0-10.0); %Neutrophils 91.1 % (42.0-75.0); Mean Corpuscular Hemoglobin 31.6 pg (27.0-31.0); Mean Platelet Volume 6.7 fL (7.4-10.4); Platelet Count 305 thou/uL (130-400); Red Blood Cell (RBC) Count 4.12 mill/uL (4.20-5.40); White Blood Cell (WBC) Count 19.2 thou/uL (4.8-10.8)
[2021-03-27 11:21] LABS: ALT (SGPT) 34 U/L (8-55); AST (SGOT) 28 U/L (5-34); Albumin 2.5 g/dL (3.4-4.8); Alkaline Phosphatase 79 U/L (40-110); Anion Gap 10 mmol/L (10-20); BUN (Urea Nitrogen) 23 mg/dL (9.8-20.1); Bilirubin, Total 0.4 mg/dL (0.2-1.2); Calc. Creatinine Clearance 91 mL/min (70-130); Calcium 8.3 mg/dL (7.8-10.44); Carbon Dioxide 34 mmol/L (23-31); Chloride 103 mmol/L (98-107); Globulin 2.4 g/dL (2.4-3.5); Glucose 166 mg/dL (83-110); Potassium 5.1 mmol/L (3.5-5.1); Protein, Total 4.9 g/dL (5.8-8.1); Sodium 142 mmol/L (136-145)
[2021-03-27] MEDS: Hydrocortisone Acetate 25 MG Suppository PR SCH ×3 (11:23→20:43)
[2021-03-27] MEDS: Saccharomyces boulardii 250 MG CAP PO SCH (11:27)
[2021-03-27] MEDS: Zinc Sulfate 220 MG CAP PO SCH (11:27)
[2021-03-27] MEDS: Enoxaparin Sodium 40 MG/0.4 ML SYRINGE SC SCH ×2 (11:27→20:35)
[2021-03-27] MEDS: Aspirin Chewable 81 MG TAB PO SCH (11:27)
[2021-03-27] MEDS: Cholecalciferol (Vitamin D3) 400 UNITS TAB PO SCH (11:27)
[2021-03-27] MEDS: Ascorbic Acid 500 mg Chewable Tablet PO SCH (11:27)
[2021-03-27] MEDS: Famotidine 20 MG TAB PO SCH ×2 (11:27→20:36)
[2021-03-27] MEDS: Dexamethasone 4 mg/ml Vial SLOW IVP SCH (11:37)
[2021-03-27 14:04] LABS: Actual Bicarbonate (HCO3a) 41.8 mEq/L (22-28); Base Excess (BEa) 11.7 mEq/L (-2.0 to +3.0); Carboxyhemoglobin (COHb) 1.4 gm% (0.0-3.0); Hemoglobin (Hb) 13.8 g/dL (12.0-16.0); O2 Tension (PaO2), arterial 62.3 mmHg (> 70.0); Potassium - ABG Lab 3.71 mmol/L (3.70-5.30); pH, Arterial 7.31 (7.35-7.45)
[2021-03-27 14:08] LABS: ALV-art Gradient 258.875 mmHg (0-20); CO2 Tension 85.3 mmHg (35.0-45.0); Puncture Site RBA
[2021-03-27] MEDS ORDERED: Vecuronium 10 MG VIAL ONE (15:26)
[2021-03-27] MEDS: Vecuronium Bromide 20 MG VIAL IV PRN (15:28)
[2021-03-27] MEDS ORDERED: Piperacillin/Tazobactam 3.375 GM in Sodium Chloride 0.9% 100 ML IVPB SCH ×2 (16:45→20:00)
[2021-03-27 17:22] LABS: CO2 Tension 85.5 mmHg (35.0-45.0); Puncture Site LR
[2021-03-27 17:23] LABS: ALV-art Gradient 293.575 mmHg (0-20)
[2021-03-27 17:28] LABS: Bacteria/HPF 2+ HPF (None Seen); Bilirubin Negative (Negative); Blood, Urine Negative (Negative); Clarity Cloudy (Clear); Glucose, Urine (Dipstick) Normal (Negative); Ketone, Urine Negative (Negative); Leukocyte Negative Leu/uL (Negative); Nitrite Negative (Negative); Protein, Urine (Dipstick) 20 mg/dL (Neg-Trace); RBC/HPF 0-3 HPF (0-3); Specific Gravity, Urine 1.018 (1.002-1.036); Squamous Epithelial 0-3 HPF (0-3); Urobilinogen Normal mg/dL (Less than 2)
[2021-03-27 17:30] LABS: Urine Culture Reflex Yes Yes
[2021-03-27] MEDS: VANCOMYCIN 1.25 GM/250 ML BAG 1.25 GM in Premix Bag 1 BAG IVPB SCH (20:44)
[2021-03-27] MEDS: Dexamethasone 10 MG/ML VIAL SLOW IVP SCH (20:55)
[2021-03-28] MEDS: Piperacillin/Tazobactam 3.375 GM in Sodium Chloride 0.9% 100 ML IVPB SCH ×3 (00:35→15:37)
[2021-03-28 04:30] LABS: #Lymphocytes 0.2 thou/uL (1.20-3.40); #Monocytes 0.5 thou/uL (0.11-0.59); #Neutrophils 16.4 thou/uL (1.40-6.50); %Basophils 0.1 % (0.0-1.0); %Eosinophils 0.1 % (0.0-10.0); %Lymphocytes 1.4 % (21.0-51.0); %Monocytes 3.2 % (0.0-10.0); %Neutrophils 95.3 % (42.0-75.0); Mean Corpuscular HGB CONC 32.2 g/dL (32.0-36.0); Mean Corpuscular Hemoglobin 32.3 pg (27.0-31.0); Mean Platelet Volume 6.7 fL (7.4-10.4); Platelet Count 338 thou/uL (130-400); RBC Distribution Width 12.8 % (11.5-14.5); Red Blood Cell (RBC) Count 4.02 mill/uL (4.20-5.40); White Blood Cell (WBC) Count 17.3 thou/uL (4.8-10.8)
[2021-03-28] MEDS: Mometasone 200 MCG/Formoterol 5 MCG 120 PUFF INHALER INH SCH ×2 (05:14→18:03)
[2021-03-28] MEDS: Ipratropium Bromide 2.5 ml Neb NEB SCH ×3 (05:14→18:02)
[2021-03-28] MEDS: HumaLOG 300 UNITS/3 ML VIAL SC PRN ×2 (06:18→10:23)
[2021-03-28 07:10] LABS: Actual Bicarbonate (HCO3a) 36.1 mEq/L (22-28); Calcium, Ionized (arterial) 1.18 mmol/L (1.12-1.30); Carboxyhemoglobin (COHb) 0.9 gm% (0.0-3.0); Hemoglobin (Hb) 12.6 g/dL (12.0-16.0); O2 Tension (PaO2), arterial 75.6 mmHg (> 70.0); Potassium - ABG Lab 3.84 mmol/L (3.70-5.30); pH, Arterial 7.34 (7.35-7.45)
[2021-03-28 07:11] LABS: CO2 Tension 68.2 mmHg (35.0-45.0); Puncture Site RBA
[2021-03-28 09:00] LABS: ALT (SGPT) 31 U/L (8-55); AST (SGOT) 24 U/L (5-34); Albumin 2.5 g/dL (3.4-4.8); Alkaline Phosphatase 79 U/L (40-110); Anion Gap 8 mmol/L (10-20); BUN (Urea Nitrogen) 18 mg/dL (9.8-20.1); Bilirubin, Total 0.3 mg/dL (0.2-1.2); Calc. Creatinine Clearance 98 mL/min (70-130); Calcium 7.8 mg/dL (7.8-10.44); Carbon Dioxide 36 mmol/L (23-31); Chloride 104 mmol/L (98-107); Globulin 2.2 g/dL (2.4-3.5); Glucose 176 mg/dL (83-110); Magnesium 2.3 mg/dL (1.6-2.6); Potassium 4.4 mmol/L (3.5-5.1); Protein, Total 4.7 g/dL (5.8-8.1); Sodium 144 mmol/L (136-145)
[2021-03-28] MEDS ORDERED: Sulfameth/Trimethoprim DS 800-160mg TAB PO SCH (09:00)
[2021-03-28] MEDS: VANCOMYCIN 1.25 GM/250 ML BAG 1.25 GM in Premix Bag 1 BAG IVPB SCH ×2 (09:10→20:43)
[2021-03-28] MEDS: Cholecalciferol (Vitamin D3) 400 UNITS TAB PO SCH (09:11)
[2021-03-28] MEDS: Enoxaparin Sodium 40 MG/0.4 ML SYRINGE SC SCH ×2 (09:11→20:42)
[2021-03-28] MEDS: Ascorbic Acid 500 mg Chewable Tablet PO SCH (09:11)
[2021-03-28] MEDS: Famotidine 20 MG TAB PO SCH ×2 (09:11→20:43)
[2021-03-28] MEDS: Dexamethasone 10 MG/ML VIAL SLOW IVP SCH ×2 (09:11→20:42)
[2021-03-28] MEDS: Zinc Sulfate 220 MG CAP PO SCH (09:11)
[2021-03-28] MEDS: Saccharomyces boulardii 250 MG CAP PO SCH (09:11)
[2021-03-28] MEDS: Aspirin Chewable 81 MG TAB PO SCH (09:11)
[2021-03-28] MEDS: Metoprolol Tartrate 25 MG TAB PO SCH ×2 (09:12→20:43)
[2021-03-28] MEDS: Hydrocortisone Acetate 25 MG Suppository PR SCH ×3 (09:12→20:43)
[2021-03-28] MEDS: Senokot S 8.6-50 MG TAB PO SCH ×2 (09:12→20:43)
[2021-03-28] MEDS: Nystatin 500,000 UNITS/5 ML UDCUP SSW SCH ×4 (09:12→20:43)
[2021-03-28 09:16] LABS: Phosphorus 1.8 mg/dL (2.3-4.7)
[2021-03-28] MEDS ORDERED: Potassium Phosphate 9 MMOL in Sodium Chloride 0.9% 100 ML IVPB SCH (09:45)
[2021-03-28] MEDS ORDERED: Fentanyl CADD 100 ML ONE (10:04)
[2021-03-28] MEDS: Fentanyl CADD 100 ML IV SCH (10:12)
[2021-03-28] MEDS ORDERED: acetaZOLAMIDE Sodium 500 mg Vial IVP SCH (11:00)
[2021-03-28] MEDS ORDERED: Sterile Water 10 ML VIAL IVP SCH (11:00)
[2021-03-28] MEDS: Propofol 1,000 MG/100 ML VIAL IV PRN (11:04)
[2021-03-28] MEDS: Norepinephrine 8 MG/0.9% NS 250 ML IVPB PRN (13:23)
[2021-03-29] MEDS: Piperacillin/Tazobactam 3.375 GM in Sodium Chloride 0.9% 100 ML IVPB SCH ×4 (01:07→23:46)
[2021-03-29 04:24] LABS: #Basophils 0.1 thou/uL (0.0-0.2); #Lymphocytes 0.2 thou/uL (1.20-3.40); #Monocytes 0.7 thou/uL (0.11-0.59); #Neutrophils 15.5 thou/uL (1.40-6.50); %Basophils 0.4 % (0.0-1.0); %Lymphocytes 1.4 % (21.0-51.0); %Monocytes 4.1 % (0.0-10.0); %Neutrophils 94.1 % (42.0-75.0); Hemoglobin 12.1 g/dL (12.0-16.0); Mean Corpuscular HGB CONC 30.7 g/dL (32.0-36.0); Mean Corpuscular Hemoglobin 31.3 pg (27.0-31.0); Mean Platelet Volume 6.9 fL (7.4-10.4); Platelet Count 288 thou/uL (130-400); Red Blood Cell (RBC) Count 3.85 mill/uL (4.20-5.40); White Blood Cell (WBC) Count 16.4 thou/uL (4.8-10.8)
[2021-03-29 04:57] LABS: ALT (SGPT) 36 U/L (8-55); AST (SGOT) 23 U/L (5-34); Albumin 2.8 g/dL (3.4-4.8); Alkaline Phosphatase 84 U/L (40-110); BUN (Urea Nitrogen) 20 mg/dL (9.8-20.1); Bilirubin, Total 0.4 mg/dL (0.2-1.2); Calc. Creatinine Clearance 93 mL/min (70-130); Calcium 8.4 mg/dL (7.8-10.44); Globulin 2.2 g/dL (2.4-3.5); Glucose 186 mg/dL (83-110); Magnesium 2.3 mg/dL (1.6-2.6); Phosphorus 2.4 mg/dL (2.3-4.7)
[2021-03-29 05:02] LABS: Anion Gap 12 mmol/L (10-20); Carbon Dioxide 36 mmol/L (23-31); Chloride 101 mmol/L (98-107); Potassium 4.2 mmol/L (3.5-5.1); Sodium 145 mmol/L (136-145)
[2021-03-29] MEDS: HumaLOG 300 UNITS/3 ML VIAL SC PRN ×4 (05:10→23:04)
[2021-03-29] MEDS: Ipratropium Bromide 2.5 ml Neb NEB SCH ×3 (06:27→18:11)
[2021-03-29] MEDS: Mometasone 200 MCG/Formoterol 5 MCG 120 PUFF INHALER INH SCH ×2 (06:28→18:11)
[2021-03-29 06:36] LABS: Actual Bicarbonate (HCO3a) 38.8 mEq/L (22-28); Base Excess (BEa) 10.6 mEq/L (-2.0 to +3.0); Calcium, Ionized (arterial) 1.19 mmol/L (1.12-1.30); Carboxyhemoglobin (COHb) 0.5 gm% (0.0-3.0); Hemoglobin (Hb) 12.1 g/dL (12.0-16.0); Potassium - ABG Lab 3.62 mmol/L (3.70-5.30); pH, Arterial 7.35 (7.35-7.45)
[2021-03-29 06:38] LABS: ALV-art Gradient 248.675 mmHg (0-20); CO2 Tension 72.1 mmHg (35.0-45.0); Puncture Site RRA
[2021-03-29 08:27] LABS: Vancomycin, Trough 12.6 ug/mL
[2021-03-29] MEDS: VANCOMYCIN 1.25 GM/250 ML BAG 1.25 GM in Premix Bag 1 BAG IVPB SCH (09:00)
[2021-03-29] MEDS ORDERED: Lactated Ringer's 1,000 ML IV SCH (09:00)
[2021-03-29] MEDS: Aspirin Chewable 81 MG TAB PO SCH (09:00)
[2021-03-29] MEDS: Saccharomyces boulardii 250 MG CAP PO SCH (09:50)
[2021-03-29] MEDS: Senokot S 8.6-50 MG TAB PO SCH ×2 (09:50→20:29)
[2021-03-29] MEDS: Nystatin 500,000 UNITS/5 ML UDCUP SSW SCH ×5 (09:50→20:42)
[2021-03-29] MEDS: Ascorbic Acid 500 mg Chewable Tablet PO SCH (09:50)
[2021-03-29] MEDS: Zinc Sulfate 220 MG CAP PO SCH (09:50)
[2021-03-29] MEDS: Metoprolol Tartrate 25 MG TAB PO SCH ×2 (09:50→20:42)
[2021-03-29] MEDS: Famotidine 20 MG TAB PO SCH ×2 (09:50→20:29)
[2021-03-29] MEDS: Cholecalciferol (Vitamin D3) 400 UNITS TAB PO SCH (09:50)
[2021-03-29] MEDS: Enoxaparin Sodium 40 MG/0.4 ML SYRINGE SC SCH ×2 (09:50→20:28)
[2021-03-29] MEDS: Hydrocortisone Acetate 25 MG Suppository PR SCH ×3 (09:50→20:42)
[2021-03-29] MEDS ORDERED: Sterile Water 10 ML ONE ×2 (10:03→20:47)
[2021-03-29] MEDS: acetaZOLAMIDE Sodium 500 mg Vial IVP SCH ×2 (10:06→20:46)
[2021-03-29] MEDS: Norepinephrine 8 MG/0.9% NS 250 ML IVPB PRN (10:06)
[2021-03-29] MEDS: Dexamethasone 10 MG/ML VIAL SLOW IVP SCH ×2 (10:10→20:30)
[2021-03-29] MEDS ORDERED: Fentanyl CADD 100 ML ONE (10:21)
[2021-03-29] MEDS: Lorazepam 2 MG/ML VIAL SLOW IVP PRN (10:25)
[2021-03-29] MEDS: Propofol 1,000 MG/100 ML VIAL IV PRN ×2 (11:00→18:30)
[2021-03-29] MEDS ORDERED: Vancomycin 1 GM in Premix Bag 1 BAG IVPB SCH (14:00)
[2021-03-29] MEDS: Vancomycin 1 GM in Premix Bag 1 BAG IVPB SCH (20:28)
[2021-03-30 03:37] LABS: #Eosinphils 0.1 thou/uL (0.0-0.7); #Lymphocytes 0.3 thou/uL (1.20-3.40); #Monocytes 0.5 thou/uL (0.11-0.59); #Neutrophils 12.8 thou/uL (1.40-6.50); %Basophils 0.1 % (0.0-1.0); %Eosinophils 0.4 % (0.0-10.0); %Lymphocytes 2.5 % (21.0-51.0); %Monocytes 3.7 % (0.0-10.0); %Neutrophils 93.3 % (42.0-75.0); Hemoglobin 11.8 g/dL (12.0-16.0); Mean Corpuscular HGB CONC 31.5 g/dL (32.0-36.0); Mean Corpuscular Hemoglobin 31.9 pg (27.0-31.0); Mean Platelet Volume 6.7 fL (7.4-10.4); Platelet Count 277 thou/uL (130-400); Red Blood Cell (RBC) Count 3.69 mill/uL (4.20-5.40); White Blood Cell (WBC) Count 13.7 thou/uL (4.8-10.8)
[2021-03-30 03:50] LABS: ALT (SGPT) 74 U/L (8-55); AST (SGOT) 41 U/L (5-34); Albumin 2.7 g/dL (3.4-4.8); Alkaline Phosphatase 85 U/L (40-110); BUN (Urea Nitrogen) 17 mg/dL (9.8-20.1); Bilirubin, Total 0.3 mg/dL (0.2-1.2); Calc. Creatinine Clearance 105 mL/min (70-130); Calcium 8.3 mg/dL (7.8-10.44); Globulin 2.2 g/dL (2.4-3.5); Glucose 160 mg/dL (83-110); Magnesium 2.2 mg/dL (1.6-2.6); Phosphorus 2.5 mg/dL (2.3-4.7); Protein, Total 4.9 g/dL (5.8-8.1)
[2021-03-30 04:03] LABS: Anion Gap 12 mmol/L (10-20); Carbon Dioxide 35 mmol/L (23-31); Chloride 100 mmol/L (98-107); Potassium 3.6 mmol/L (3.5-5.1); Sodium 143 mmol/L (136-145)
[2021-03-30] MEDS: Vancomycin 1 GM in Premix Bag 1 BAG IVPB SCH ×3 (04:04→20:49)
[2021-03-30] MEDS: HumaLOG 300 UNITS/3 ML VIAL SC PRN (04:40)
[2021-03-30] MEDS: Ipratropium Bromide 2.5 ml Neb NEB SCH ×3 (06:52→19:10)
[2021-03-30] MEDS: Mometasone 200 MCG/Formoterol 5 MCG 120 PUFF INHALER INH SCH ×2 (06:52→19:12)
[2021-03-30] MEDS ORDERED: Sodium Bicarbonate Tab 325 MG TAB PER TUBE PRN (07:10)
[2021-03-30] MEDS ORDERED: Pancrelipase DR 12,000 1 CAP PER TUBE PRN (07:10)
[2021-03-30 07:42] LABS: Actual Bicarbonate (HCO3a) 39.8 mEq/L (22-28); Base Excess (BEa) 9.3 mEq/L (-2.0 to +3.0); Hemoglobin (Hb) 11.7 g/dL (12.0-16.0); Potassium - ABG Lab 3.29 mmol/L (3.70-5.30)
[2021-03-30 08:14] LABS: pH, Arterial 7.24 (7.35-7.45)
[2021-03-30 08:15] LABS: CO2 Tension 94.6 mmHg (35.0-45.0); Puncture Site LRA
[2021-03-30] MEDS: Piperacillin/Tazobactam 3.375 GM in Sodium Chloride 0.9% 100 ML IVPB SCH ×2 (09:31→15:51)
[2021-03-30] MEDS: Nystatin 500,000 UNITS/5 ML UDCUP SSW SCH (09:31)
[2021-03-30] MEDS: Saccharomyces boulardii 250 MG CAP PO SCH (09:32)
[2021-03-30] MEDS: Aspirin Chewable 81 MG TAB PO SCH (09:32)
[2021-03-30] MEDS: Cholecalciferol (Vitamin D3) 400 UNITS TAB PO SCH (09:32)
[2021-03-30] MEDS: Zinc Sulfate 220 MG CAP PO SCH (09:32)
[2021-03-30] MEDS: Ascorbic Acid 500 mg Chewable Tablet PO SCH (09:32)
[2021-03-30] MEDS: Senokot S 8.6-50 MG TAB PO SCH ×2 (09:32→20:50)
[2021-03-30] MEDS: Famotidine 20 MG TAB PO SCH ×2 (09:32→20:50)
[2021-03-30] MEDS: Enoxaparin Sodium 40 MG/0.4 ML SYRINGE SC SCH ×2 (09:33→20:50)
[2021-03-30] MEDS: Hydrocortisone Acetate 25 MG Suppository PR SCH ×3 (09:34→21:20)
[2021-03-30] MEDS: Metoprolol Tartrate 25 MG TAB PO SCH ×2 (09:35→21:20)
[2021-03-30] MEDS: Dexamethasone 10 MG/ML VIAL SLOW IVP SCH ×2 (09:48→20:51)
[2021-03-30] MEDS: Norepinephrine 8 MG/0.9% NS 250 ML IVPB PRN (11:28)
[2021-03-30] MEDS: Propofol 1,000 MG/100 ML VIAL IV PRN ×2 (12:09→18:16)
[2021-03-30] MEDS: Lorazepam 2 MG/ML VIAL SLOW IVP PRN ×2 (16:45→21:19)
[2021-03-30 20:18] LABS: Vancomycin, Trough 23.4 ug/mL
[2021-03-30] MEDS: Fentanyl CADD 100 ML IV SCH (20:49)
[2021-03-31] MEDS: Piperacillin/Tazobactam 3.375 GM in Sodium Chloride 0.9% 100 ML IVPB SCH ×3 (00:07→15:37)
[2021-03-31] MEDS: Propofol 1,000 MG/100 ML VIAL IV PRN ×4 (03:09→21:20)
[2021-03-31] MEDS ORDERED: Vancomycin 1 GM in Premix Bag 1 BAG IVPB SCH (05:00)
[2021-03-31] MEDS: Mometasone 200 MCG/Formoterol 5 MCG 120 PUFF INHALER INH SCH ×2 (06:47→18:56)
[2021-03-31] MEDS: Ipratropium Bromide 2.5 ml Neb NEB SCH ×3 (06:47→18:56)
[2021-03-31 07:44] LABS: Actual Bicarbonate (HCO3a) 39.8 mEq/L (22-28); Base Excess (BEa) 10.9 mEq/L (-2.0 to +3.0); Calcium, Ionized (arterial) 1.16 mmol/L (1.12-1.30); Carboxyhemoglobin (COHb) 0.9 gm% (0.0-3.0); Hemoglobin (Hb) 11.3 g/dL (12.0-16.0); O2 Tension (PaO2), arterial 61.3 mmHg (> 70.0); Potassium - ABG Lab 3.35 mmol/L (3.70-5.30); pH, Arterial 7.31 (7.35-7.45)
[2021-03-31 09:00] LABS: CO2 Tension 80.4 mmHg (35.0-45.0); Puncture Site LRA
[2021-03-31] MEDS: Hydrocortisone Acetate 25 MG Suppository PR SCH ×3 (09:56→21:20)
[2021-03-31] MEDS: Aspirin Chewable 81 MG TAB PO SCH (09:56)
[2021-03-31] MEDS: Enoxaparin Sodium 40 MG/0.4 ML SYRINGE SC SCH ×2 (09:56→21:20)
[2021-03-31] MEDS: Cholecalciferol (Vitamin D3) 400 UNITS TAB PO SCH (09:56)
[2021-03-31] MEDS: Famotidine 20 MG TAB PO SCH ×2 (09:56→21:20)
[2021-03-31] MEDS: Senokot S 8.6-50 MG TAB PO SCH ×2 (09:56→21:20)
[2021-03-31] MEDS: Ascorbic Acid 500 mg Chewable Tablet PO SCH (09:57)
[2021-03-31] MEDS: Metoprolol Tartrate 25 MG TAB PO SCH ×2 (09:57→21:21)
[2021-03-31] MEDS: Dexamethasone 10 MG/ML VIAL SLOW IVP SCH ×2 (09:57→21:20)
[2021-03-31] MEDS: Saccharomyces boulardii 250 MG CAP PO SCH (09:57)
[2021-03-31] MEDS: Zinc Sulfate 220 MG CAP PO SCH (09:57)
[2021-03-31 10:50] LABS: #Basophils 0.1 thou/uL (0.0-0.2); #Lymphocytes 0.6 thou/uL (1.20-3.40); #Neutrophils 9.6 thou/uL (1.40-6.50); %Basophils 0.6 % (0.0-1.0); %Eosinophils 0.4 % (0.0-10.0); %Monocytes 8.9 % (0.0-10.0); %Neutrophils 85.1 % (42.0-75.0); Hemoglobin 10.5 g/dL (12.0-16.0); Mean Corpuscular Volume 99.9 fL (78.0-98.0); Mean Platelet Volume 6.6 fL (7.4-10.4); Platelet Count 239 thou/uL (130-400); RBC Distribution Width 12.9 % (11.5-14.5); Red Blood Cell (RBC) Count 3.39 mill/uL (4.20-5.40); White Blood Cell (WBC) Count 11.2 thou/uL (4.8-10.8)
[2021-03-31 11:08] LABS: ALT (SGPT) 55 U/L (8-55); AST (SGOT) 24 U/L (5-34); Albumin 2.4 g/dL (3.4-4.8); Alkaline Phosphatase 72 U/L (40-110); BUN (Urea Nitrogen) 14 mg/dL (9.8-20.1); Bilirubin, Total 0.2 mg/dL (0.2-1.2); Calc. Creatinine Clearance 123 mL/min (70-130); Calcium 8.1 mg/dL (7.8-10.44); Globulin 2.1 g/dL (2.4-3.5); Glucose 122 mg/dL (83-110); Magnesium 2.2 mg/dL (1.6-2.6); Phosphorus 2.1 mg/dL (2.3-4.7); Protein, Total 4.5 g/dL (5.8-8.1)
[2021-03-31 11:22] LABS: Anion Gap 9 mmol/L (10-20); Carbon Dioxide 38 mmol/L (23-31); Chloride 98 mmol/L (98-107); Potassium 3.8 mmol/L (3.5-5.1); Sodium 141 mmol/L (136-145)
[2021-03-31 12:15] LABS: Vancomycin, Random 32.7 ug/mL (See Comment)
[2021-03-31] MEDS: Norepinephrine 8 MG/0.9% NS 250 ML IVPB PRN (12:24)
[2021-03-31] MEDS ORDERED: Vancomycin 1 GM in Admixture Fee 1 EACH IVPB SCH (12:45)
[2021-03-31] MEDS: Lorazepam 2 MG/ML VIAL SLOW IVP PRN ×2 (12:55→15:23)
[2021-03-31] MEDS ORDERED: Fentanyl CADD 100 ML ONE (17:01)
[2021-03-31] MEDS: Fentanyl CADD 100 ML IV SCH (17:06)
[2021-04-01] MEDS: Piperacillin/Tazobactam 3.375 GM in Sodium Chloride 0.9% 100 ML IVPB SCH ×4 (00:16→23:18)
[2021-04-01 04:20] LABS: #Lymphocytes 0.4 thou/uL (1.20-3.40); #Monocytes 0.6 thou/uL (0.11-0.59); #Neutrophils 10.7 thou/uL (1.40-6.50); %Basophils 0.1 % (0.0-1.0); %Eosinophils 0.2 % (0.0-10.0); %Lymphocytes 3.7 % (21.0-51.0); %Monocytes 5.2 % (0.0-10.0); %Neutrophils 90.8 % (42.0-75.0); Hemoglobin 11.1 g/dL (12.0-16.0); Mean Corpuscular HGB CONC 31.8 g/dL (32.0-36.0); Mean Corpuscular Hemoglobin 31.6 pg (27.0-31.0); Mean Corpuscular Volume 99.5 fL (78.0-98.0); Mean Platelet Volume 6.6 fL (7.4-10.4); Platelet Count 197 thou/uL (130-400); RBC Distribution Width 13.1 % (11.5-14.5); Red Blood Cell (RBC) Count 3.52 mill/uL (4.20-5.40); White Blood Cell (WBC) Count 11.8 thou/uL (4.8-10.8)
[2021-04-01 04:41] LABS: ALT (SGPT) 51 U/L (8-55); AST (SGOT) 22 U/L (5-34); Albumin 2.5 g/dL (3.4-4.8); Alkaline Phosphatase 75 U/L (40-110); BUN (Urea Nitrogen) 16 mg/dL (9.8-20.1); Bilirubin, Total 0.3 mg/dL (0.2-1.2); Calc. Creatinine Clearance 113 mL/min (70-130); Calcium 8.3 mg/dL (7.8-10.44); Globulin 2.1 g/dL (2.4-3.5); Glucose 162 mg/dL (83-110); Magnesium 2.2 mg/dL (1.6-2.6); Phosphorus 2.5 mg/dL (2.3-4.7); Protein, Total 4.6 g/dL (5.8-8.1)
[2021-04-01 04:50] LABS: Anion Gap 10 mmol/L (10-20); Carbon Dioxide 38 mmol/L (23-31); Chloride 96 mmol/L (98-107); Potassium 3.7 mmol/L (3.5-5.1); Sodium 140 mmol/L (136-145)
[2021-04-01] MEDS: Propofol 1,000 MG/100 ML VIAL IV PRN ×3 (06:34→21:24)
[2021-04-01] MEDS: Mometasone 200 MCG/Formoterol 5 MCG 120 PUFF INHALER INH SCH ×2 (07:01→18:00)
[2021-04-01] MEDS: Ipratropium Bromide 2.5 ml Neb NEB SCH ×3 (07:01→18:11)
[2021-04-01 07:44] LABS: Actual Bicarbonate (HCO3a) 38.1 mEq/L (22-28); Base Excess (BEa) 9.7 mEq/L (-2.0 to +3.0); Calcium, Ionized (arterial) 1.18 mmol/L (1.12-1.30); Hemoglobin (Hb) 10.8 g/dL (12.0-16.0); Potassium - ABG Lab 3.46 mmol/L (3.70-5.30); pH, Arterial 7.32 (7.35-7.45)
[2021-04-01 07:54] LABS: CO2 Tension 76.6 mmHg (35.0-45.0); O2 Tension (PaO2), arterial 57.5 mmHg (> 70.0); Puncture Site RRA
[2021-04-01] MEDS: Enoxaparin Sodium 40 MG/0.4 ML SYRINGE SC SCH ×2 (10:09→20:32)
[2021-04-01] MEDS: Cholecalciferol (Vitamin D3) 400 UNITS TAB PO SCH (10:10)
[2021-04-01] MEDS: Saccharomyces boulardii 250 MG CAP PO SCH (10:10)
[2021-04-01] MEDS: Aspirin Chewable 81 MG TAB PO SCH (10:10)
[2021-04-01] MEDS: Senokot S 8.6-50 MG TAB PO SCH ×2 (10:10→20:33)
[2021-04-01] MEDS: Ascorbic Acid 500 mg Chewable Tablet PO SCH (10:10)
[2021-04-01] MEDS: Famotidine 20 MG TAB PO SCH ×2 (10:10→20:33)
[2021-04-01] MEDS: Zinc Sulfate 220 MG CAP PO SCH (10:10)
[2021-04-01] MEDS: Dexamethasone 10 MG/ML VIAL SLOW IVP SCH ×2 (10:11→20:32)
[2021-04-01] MEDS: Metoprolol Tartrate 25 MG TAB PO SCH ×2 (10:13→20:33)
[2021-04-01] MEDS: Hydrocortisone Acetate 25 MG Suppository PR SCH ×2 (10:13→15:00)
[2021-04-01] MEDS ORDERED: Fentanyl CADD 100 ML ONE (12:08)
[2021-04-01] MEDS: Fentanyl CADD 100 ML IV SCH (12:14)
[2021-04-01] MEDS: Lorazepam 2 MG/ML VIAL SLOW IVP PRN ×2 (12:15→22:35)
[2021-04-01] MEDS ORDERED: Vancomycin 1 GM in Admixture Fee 1 EACH IVPB SCH (15:00)
[2021-04-01] MEDS: Vancomycin 1 GM in Premix Bag 1 BAG IVPB SCH (15:59)
[2021-04-01] MEDS ORDERED: Bisacodyl 10 MG SUPP PR PRN (19:53)
[2021-04-01] MEDS ORDERED: Polyethylene Glycol 3350 17 GM Packet PER TUBE PRN (19:54)
[2021-04-01] MEDS ORDERED: Hydrocortisone Acetate 25 MG Suppository PR PRN (20:00)
[2021-04-02] MEDS ORDERED: Fentanyl CADD 100 ML ONE ×2 (00:56→14:05)
[2021-04-02] MEDS: Fentanyl CADD 100 ML IV SCH (00:59)
[2021-04-02] MEDS: Vancomycin 1 GM in Premix Bag 1 BAG IVPB SCH ×2 (03:21→14:15)
[2021-04-02] MEDS: Propofol 1,000 MG/100 ML VIAL IV PRN ×3 (05:01→19:57)
[2021-04-02 05:06] LABS: ALT (SGPT) 44 U/L (8-55); AST (SGOT) 27 U/L (5-34); Albumin 2.2 g/dL (3.4-4.8); Alkaline Phosphatase 67 U/L (40-110); BUN (Urea Nitrogen) 15 mg/dL (9.8-20.1); Bilirubin, Total 0.3 mg/dL (0.2-1.2); Calc. Creatinine Clearance 133 mL/min (70-130); Calcium 7.9 mg/dL (7.8-10.44); Globulin 1.9 g/dL (2.4-3.5); Glucose 157 mg/dL (83-110); Magnesium 2.2 mg/dL (1.6-2.6); Phosphorus 2.4 mg/dL (2.3-4.7); Protein, Total 4.1 g/dL (5.8-8.1)
[2021-04-02 05:17] LABS: Anion Gap 12 mmol/L (10-20); Carbon Dioxide 37 mmol/L (23-31); Chloride 93 mmol/L (98-107); Sodium 138 mmol/L (136-145)
[2021-04-02] MEDS: Ipratropium Bromide 2.5 ml Neb NEB SCH ×3 (07:23→18:02)
[2021-04-02] MEDS: Mometasone 200 MCG/Formoterol 5 MCG 120 PUFF INHALER INH SCH ×2 (07:23→18:02)
[2021-04-02 08:13] LABS: Actual Bicarbonate (HCO3a) 43.7 mEq/L (22-28); Calcium, Ionized (arterial) 1.11 mmol/L (1.12-1.30); Carboxyhemoglobin (COHb) 1.2 gm% (0.0-3.0); Hemoglobin (Hb) 10.4 g/dL (12.0-16.0); Potassium - ABG Lab 3.61 mmol/L (3.70-5.30); pH, Arterial 7.34 (7.35-7.45)
[2021-04-02 08:14] LABS: CO2 Tension 83.5 mmHg (35.0-45.0); O2 Tension (PaO2), arterial 55.1 mmHg (> 70.0); Puncture Site RRA
[2021-04-02 08:15] LABS: ALV-art Gradient 125.725 mmHg (0-20)
[2021-04-02] MEDS: Piperacillin/Tazobactam 3.375 GM in Sodium Chloride 0.9% 100 ML IVPB SCH ×3 (08:50→23:26)
[2021-04-02] MEDS: Enoxaparin Sodium 40 MG/0.4 ML SYRINGE SC SCH ×2 (09:13→20:02)
[2021-04-02] MEDS: Cholecalciferol (Vitamin D3) 400 UNITS TAB PO SCH (09:14)
[2021-04-02] MEDS: Aspirin Chewable 81 MG TAB PO SCH (09:14)
[2021-04-02] MEDS: Famotidine 20 MG TAB PO SCH ×2 (09:14→20:01)
[2021-04-02] MEDS: Senokot S 8.6-50 MG TAB PO SCH ×2 (09:14→20:00)
[2021-04-02] MEDS: Zinc Sulfate 220 MG CAP PO SCH (09:14)
[2021-04-02] MEDS: Saccharomyces boulardii 250 MG CAP PO SCH (09:14)
[2021-04-02] MEDS: Ascorbic Acid 500 mg Chewable Tablet PO SCH (09:14)
[2021-04-02] MEDS: Metoprolol Tartrate 25 MG TAB PO SCH ×2 (09:14→20:01)
[2021-04-02] MEDS: Dexamethasone 10 MG/ML VIAL SLOW IVP SCH ×2 (09:15→20:01)
[2021-04-02 12:44] LABS: #Basophils 0.1 thou/uL (0.0-0.2); #Eosinphils 0.1 thou/uL (0.0-0.7); #Lymphocytes 0.5 thou/uL (1.20-3.40); #Monocytes 0.7 thou/uL (0.11-0.59); #Neutrophils 11.5 thou/uL (1.40-6.50); %Basophils 0.8 % (0.0-1.0); %Eosinophils 0.7 % (0.0-10.0); %Lymphocytes 3.9 % (21.0-51.0); %Neutrophils 89.7 % (42.0-75.0); Hemoglobin 9.9 g/dL (12.0-16.0); Mean Corpuscular HGB CONC 31.9 g/dL (32.0-36.0); Mean Corpuscular Hemoglobin 31.5 pg (27.0-31.0); Mean Corpuscular Volume 98.6 fL (78.0-98.0); Mean Platelet Volume 6.6 fL (7.4-10.4); Platelet Count 181 thou/uL (130-400); RBC Distribution Width 13.4 % (11.5-14.5); Red Blood Cell (RBC) Count 3.16 mill/uL (4.20-5.40); White Blood Cell (WBC) Count 12.9 thou/uL (4.8-10.8)
[2021-04-02] MEDS: Lorazepam 2 MG/ML VIAL SLOW IVP PRN (14:15)
[2021-04-03] MEDS ORDERED: Lidocaine 1% (PF) 30 ML VIAL SC SCH (01:00)
[2021-04-03] MEDS ORDERED: Fentanyl CADD 100 ML ONE ×2 (03:19→18:59)
[2021-04-03] MEDS: Fentanyl CADD 100 ML IV SCH (03:29)
[2021-04-03 03:55] LABS: Vancomycin, Trough 13.3 ug/mL
[2021-04-03] MEDS: Vancomycin 1 GM in Premix Bag 1 BAG IVPB SCH ×2 (04:11→15:00)
[2021-04-03 04:19] LABS: #Basophils 0.1 thou/uL (0.0-0.2); #Eosinphils 0.1 thou/uL (0.0-0.7); #Lymphocytes 0.5 thou/uL (1.20-3.40); #Monocytes 0.7 thou/uL (0.11-0.59); #Neutrophils 12.2 thou/uL (1.40-6.50); %Basophils 0.7 % (0.0-1.0); %Eosinophils 0.4 % (0.0-10.0); %Lymphocytes 3.8 % (21.0-51.0); %Monocytes 5.1 % (0.0-10.0); %Neutrophils 90.1 % (42.0-75.0); Hemoglobin 10.6 g/dL (12.0-16.0); Mean Corpuscular HGB CONC 33.6 g/dL (32.0-36.0); Mean Corpuscular Volume 98.2 fL (78.0-98.0); Mean Platelet Volume 6.7 fL (7.4-10.4); Platelet Count 209 thou/uL (130-400); RBC Distribution Width 13.8 % (11.5-14.5); White Blood Cell (WBC) Count 13.6 thou/uL (4.8-10.8)
[2021-04-03 04:32] LABS: ALT (SGPT) 63 U/L (8-55); AST (SGOT) 39 U/L (5-34); Albumin 2.7 g/dL (3.4-4.8); Alkaline Phosphatase 77 U/L (40-110); BUN (Urea Nitrogen) 14 mg/dL (9.8-20.1); Bilirubin, Total 0.4 mg/dL (0.2-1.2); Calc. Creatinine Clearance 143 mL/min (70-130); Calcium 8.3 mg/dL (7.8-10.44); Glucose 136 mg/dL (83-110); Magnesium 2.1 mg/dL (1.6-2.6); Phosphorus 2.2 mg/dL (2.3-4.7); Protein, Total 4.7 g/dL (5.8-8.1)
[2021-04-03 04:43] LABS: Anion Gap 12 mmol/L (10-20); Carbon Dioxide 39 mmol/L (23-31); Chloride 93 mmol/L (98-107); Sodium 140 mmol/L (136-145)
[2021-04-03] MEDS ORDERED: Midazolam HCl 2 mg/2 ml Vial SLOW IVP SCH (05:00)
[2021-04-03] MEDS ORDERED: Lidocaine 1% w/Epinephrine 1:100K 20 ML VIAL IJ SCH (05:00)
[2021-04-03] MEDS: Propofol 1,000 MG/100 ML VIAL IV PRN ×3 (05:33→22:43)
[2021-04-03] MEDS ORDERED: Sterile Water 10 ML ONE (06:30)
[2021-04-03] MEDS ORDERED: CEFAZOLIN 2 GM in Premix Bag 1 BAG IVPB SCH (07:00)
[2021-04-03 07:03] LABS: Actual Bicarbonate (HCO3a) 43.4 mEq/L (22-28); Base Excess (BEa) 15.5 mEq/L (-2.0 to +3.0); Calcium, Ionized (arterial) 1.14 mmol/L (1.12-1.30)
[2021-04-03 07:08] LABS: CO2 Tension 71.1 mmHg (35.0-45.0); O2 Tension (PaO2), arterial 50.3 mmHg (> 70.0)
[2021-04-03 07:09] LABS: ALV-art Gradient 146.025 mmHg (0-20); Puncture Site RRA
[2021-04-03] MEDS: Vecuronium 10 MG VIAL IVP SCH (07:18)
[2021-04-03] MEDS: Mometasone 200 MCG/Formoterol 5 MCG 120 PUFF INHALER INH SCH ×2 (08:22→19:06)
[2021-04-03] MEDS: Ipratropium Bromide 2.5 ml Neb NEB SCH ×3 (08:22→19:06)
[2021-04-03] MEDS ORDERED: Vecuronium 10 MG VIAL IV SCH (10:15)
[2021-04-03] MEDS ORDERED: Lidocaine 1% w/Epinephrine 1:100K 20 ML VIAL NERVE BLCK SCH (10:15)
[2021-04-03] MEDS: Piperacillin/Tazobactam 3.375 GM in Sodium Chloride 0.9% 100 ML IVPB SCH ×3 (11:16→23:52)
[2021-04-03] MEDS: Ascorbic Acid 500 mg Chewable Tablet PO SCH (11:16)
[2021-04-03] MEDS: Senokot S 8.6-50 MG TAB PO SCH ×2 (11:17→20:56)
[2021-04-03] MEDS: Zinc Sulfate 220 MG CAP PO SCH (11:17)
[2021-04-03] MEDS: Cholecalciferol (Vitamin D3) 400 UNITS TAB PO SCH (11:17)
[2021-04-03] MEDS: Aspirin Chewable 81 MG TAB PO SCH (11:17)
[2021-04-03] MEDS: Famotidine 20 MG TAB PO SCH ×2 (11:17→20:56)
[2021-04-03] MEDS: Metoprolol Tartrate 25 MG TAB PO SCH ×2 (11:17→20:56)
[2021-04-03] MEDS: Saccharomyces boulardii 250 MG CAP PO SCH (11:17)
[2021-04-03] MEDS: Enoxaparin Sodium 40 MG/0.4 ML SYRINGE SC SCH ×2 (11:19→20:56)
[2021-04-03] MEDS: Dexamethasone 10 MG/ML VIAL SLOW IVP SCH ×2 (11:20→20:56)
[2021-04-03] MEDS: Lorazepam 2 MG/ML VIAL SLOW IVP PRN (15:01)
[2021-04-03] MEDS: Vecuronium Bromide 20 MG VIAL IV PRN (15:03)
[2021-04-03] MEDS: QUERCETIN WITH BROMELAIN PO SCH (17:42)
[2021-04-04] MEDS: Vancomycin 1 GM in Premix Bag 1 BAG IVPB SCH ×2 (02:24→19:21)
[2021-04-04] MEDS: Lorazepam 2 MG/ML VIAL SLOW IVP PRN (02:24)
[2021-04-04] MEDS: Vecuronium 10 MG VIAL IVP SCH (02:24)
[2021-04-04 03:25] LABS: #Lymphocytes 0.4 thou/uL (1.20-3.40); #Monocytes 0.5 thou/uL (0.11-0.59); #Neutrophils 12.2 thou/uL (1.40-6.50); %Basophils 0.1 % (0.0-1.0); %Eosinophils 0.2 % (0.0-10.0); %Neutrophils 92.6 % (42.0-75.0); Hemoglobin 10.2 g/dL (12.0-16.0); Mean Corpuscular HGB CONC 31.9 g/dL (32.0-36.0); Mean Corpuscular Hemoglobin 32.1 pg (27.0-31.0); Mean Platelet Volume 6.5 fL (7.4-10.4); Platelet Count 177 thou/uL (130-400); RBC Distribution Width 14.3 % (11.5-14.5); Red Blood Cell (RBC) Count 3.19 mill/uL (4.20-5.40); White Blood Cell (WBC) Count 13.2 thou/uL (4.8-10.8)
[2021-04-04 03:46] LABS: ALT (SGPT) 70 U/L (8-55); AST (SGOT) 47 U/L (5-34); Albumin 2.5 g/dL (3.4-4.8); Alkaline Phosphatase 76 U/L (40-110); BUN (Urea Nitrogen) 10 mg/dL (9.8-20.1); Bilirubin, Total 0.4 mg/dL (0.2-1.2); Calc. Creatinine Clearance 142 mL/min (70-130); Calcium 7.9 mg/dL (7.8-10.44); Globulin 1.8 g/dL (2.4-3.5); Glucose 126 mg/dL (83-110); Magnesium 2.2 mg/dL (1.6-2.6); Phosphorus 2.6 mg/dL (2.3-4.7); Protein, Total 4.3 g/dL (5.8-8.1)
[2021-04-04 03:56] LABS: Anion Gap 14 mmol/L (10-20); Carbon Dioxide 39 mmol/L (23-31); Chloride 95 mmol/L (98-107); Potassium 3.9 mmol/L (3.5-5.1); Sodium 144 mmol/L (136-145)
[2021-04-04] MEDS: Propofol 1,000 MG/100 ML VIAL IV PRN (06:16)
[2021-04-04] MEDS: Ipratropium Bromide 2.5 ml Neb NEB SCH ×3 (07:39→18:35)
[2021-04-04] MEDS: Mometasone 200 MCG/Formoterol 5 MCG 120 PUFF INHALER INH SCH ×2 (07:39→18:37)
[2021-04-04 08:20] LABS: Actual Bicarbonate (HCO3a) 40.9 mEq/L (22-28); Base Excess (BEa) 12.5 mEq/L (-2.0 to +3.0); Calcium, Ionized (arterial) 1.13 mmol/L (1.12-1.30); Carboxyhemoglobin (COHb) 1.6 gm% (0.0-3.0); Hemoglobin (Hb) 11.1 g/dL (12.0-16.0); Potassium - ABG Lab 3.47 mmol/L (3.70-5.30); pH, Arterial 7.35 (7.35-7.45)
[2021-04-04 08:27] LABS: ALV-art Gradient 131.875 mmHg (0-20); CO2 Tension 76.5 mmHg (35.0-45.0); O2 Tension (PaO2), arterial 57.7 mmHg (> 70.0); Puncture Site RRA
[2021-04-04] MEDS: Saccharomyces boulardii 250 MG CAP PO SCH (09:11)
[2021-04-04] MEDS: Dexamethasone 10 MG/ML VIAL SLOW IVP SCH ×2 (09:12→21:12)
[2021-04-04] MEDS: Famotidine 20 MG TAB PO SCH ×2 (09:12→21:12)
[2021-04-04] MEDS: Zinc Sulfate 220 MG CAP PO SCH (09:12)
[2021-04-04] MEDS: Aspirin Chewable 81 MG TAB PO SCH (09:12)
[2021-04-04] MEDS: Ascorbic Acid 500 mg Chewable Tablet PO SCH (09:13)
[2021-04-04] MEDS: Cholecalciferol (Vitamin D3) 400 UNITS TAB PO SCH (09:13)
[2021-04-04] MEDS: Enoxaparin Sodium 40 MG/0.4 ML SYRINGE SC SCH ×2 (09:13→21:12)
[2021-04-04] MEDS: Piperacillin/Tazobactam 3.375 GM in Sodium Chloride 0.9% 100 ML IVPB SCH ×2 (09:19→15:21)
[2021-04-04] MEDS: QUERCETIN WITH BROMELAIN PO SCH ×2 (09:19→19:34)
[2021-04-04] MEDS: Senokot S 8.6-50 MG TAB PO SCH ×2 (09:19→21:12)
[2021-04-04] MEDS: Metoprolol Tartrate 25 MG TAB PO SCH ×2 (09:20→21:15)
[2021-04-04] MEDS: fentaNYL 75 mcg/hour Patch TD SCH (12:24)
[2021-04-04] MEDS ORDERED: Fentanyl CADD 100 ML ONE (14:08)
[2021-04-04] MEDS ORDERED: Sodium Chloride 0.9% 500 ML IV SCH (23:45)
[2021-04-05] MEDS: Piperacillin/Tazobactam 3.375 GM in Sodium Chloride 0.9% 100 ML IVPB SCH ×4 (00:04→23:11)
[2021-04-05] MEDS: Norepinephrine 8 MG/0.9% NS 250 ML IVPB PRN ×2 (00:16→18:57)
[2021-04-05] MEDS: Vancomycin 1 GM in Premix Bag 1 BAG IVPB SCH ×2 (03:41→15:25)
[2021-04-05 05:19] LABS: #Lymphocytes 0.4 thou/uL (1.20-3.40); #Monocytes 0.5 thou/uL (0.11-0.59); #Neutrophils 12.9 thou/uL (1.40-6.50); %Basophils 0.2 % (0.0-1.0); %Eosinophils 0.1 % (0.0-10.0); %Lymphocytes 2.5 % (21.0-51.0); %Monocytes 3.8 % (0.0-10.0); %Neutrophils 93.3 % (42.0-75.0); Hemoglobin 10.3 g/dL (12.0-16.0); Mean Corpuscular Hemoglobin 32.9 pg (27.0-31.0); Mean Corpuscular Volume 99.6 fL (78.0-98.0); Mean Platelet Volume 6.9 fL (7.4-10.4); Platelet Count 191 thou/uL (130-400); RBC Distribution Width 14.8 % (11.5-14.5); Red Blood Cell (RBC) Count 3.13 mill/uL (4.20-5.40); White Blood Cell (WBC) Count 13.8 thou/uL (4.8-10.8)
[2021-04-05 05:51] LABS: ALT (SGPT) 86 U/L (8-55); AST (SGOT) 57 U/L (5-34); Albumin 2.6 g/dL (3.4-4.8); Alkaline Phosphatase 82 U/L (40-110); BUN (Urea Nitrogen) 14 mg/dL (9.8-20.1); Bilirubin, Total 0.4 mg/dL (0.2-1.2); Calc. Creatinine Clearance 141 mL/min (70-130); Calcium 8.3 mg/dL (7.8-10.44); Glucose 165 mg/dL (83-110); Magnesium 2.2 mg/dL (1.6-2.6); Phosphorus 2.6 mg/dL (2.3-4.7); Protein, Total 4.6 g/dL (5.8-8.1)
[2021-04-05] MEDS: HumaLOG 300 UNITS/3 ML VIAL SC PRN (05:59)
[2021-04-05 06:01] LABS: Anion Gap 12 mmol/L (10-20); Carbon Dioxide 39 mmol/L (23-31); Chloride 95 mmol/L (98-107); Potassium 3.8 mmol/L (3.5-5.1); Sodium 142 mmol/L (136-145)
[2021-04-05 06:55] LABS: Actual Bicarbonate (HCO3a) 44.3 mEq/L (22-28); Base Excess (BEa) 16.3 mEq/L (-2.0 to +3.0); Calcium, Ionized (arterial) 1.14 mmol/L (1.12-1.30); Carboxyhemoglobin (COHb) 0.6 gm% (0.0-3.0); Hemoglobin (Hb) 10.7 g/dL (12.0-16.0); O2 Tension (PaO2), arterial 76.3 mmHg (> 70.0); pH, Arterial 7.39 (7.35-7.45)
[2021-04-05 06:56] LABS: CO2 Tension 75.4 mmHg (35.0-45.0); Puncture Site RRA
[2021-04-05] MEDS: Ipratropium Bromide 2.5 ml Neb NEB SCH ×3 (07:40→17:59)
[2021-04-05] MEDS: Mometasone 200 MCG/Formoterol 5 MCG 120 PUFF INHALER INH SCH ×2 (07:40→17:59)
[2021-04-05] MEDS: Metoprolol Tartrate 25 MG TAB PO SCH ×2 (09:57→20:23)
[2021-04-05] MEDS: Famotidine 20 MG TAB PO SCH ×2 (09:57→20:23)
[2021-04-05] MEDS: QUERCETIN WITH BROMELAIN PO SCH ×2 (09:57→15:57)
[2021-04-05] MEDS: Aspirin Chewable 81 MG TAB PO SCH (09:57)
[2021-04-05] MEDS: Cholecalciferol (Vitamin D3) 400 UNITS TAB PO SCH (09:57)
[2021-04-05] MEDS: Zinc Sulfate 220 MG CAP PO SCH (09:58)
[2021-04-05] MEDS: Saccharomyces boulardii 250 MG CAP PO SCH (09:58)
[2021-04-05] MEDS: Senokot S 8.6-50 MG TAB PO SCH ×2 (09:58→20:23)
[2021-04-05] MEDS: Ascorbic Acid 500 mg Chewable Tablet PO SCH (09:58)
[2021-04-05] MEDS: Dexamethasone 10 MG/ML VIAL SLOW IVP SCH ×2 (10:28→20:23)
[2021-04-05] MEDS: Enoxaparin Sodium 40 MG/0.4 ML SYRINGE SC SCH ×2 (10:30→20:24)
[2021-04-05] MEDS: Dexmedetomidine 1,000 MCG in Sodium Chloride 0.9% 250 ML 240 ML IVPB SCH (15:20)
[2021-04-05] MEDS: Propofol 1,000 MG/100 ML VIAL IV PRN (18:56)
[2021-04-05] MEDS: Vecuronium 10 MG VIAL IVP PRN ×3 (19:01→23:11)
[2021-04-05] MEDS ORDERED: Fentanyl CADD 100 ML ONE (23:31)
[2021-04-05] MEDS: Fentanyl CADD 100 ML IV SCH (23:38)
[2021-04-06] MEDS: Vecuronium 10 MG VIAL IVP PRN ×5 (01:59→23:30)
[2021-04-06] MEDS: Vancomycin 1 GM in Premix Bag 1 BAG IVPB SCH ×2 (02:12→17:05)
[2021-04-06] MEDS: Propofol 1,000 MG/100 ML VIAL IV PRN ×2 (03:52→23:36)
[2021-04-06 07:16] LABS: Base Excess (BEa) 18.6 mEq/L (-2.0 to +3.0); Calcium, Ionized (arterial) 1.12 mmol/L (1.12-1.30); Carboxyhemoglobin (COHb) 0.1 gm% (0.0-3.0); O2 Tension (PaO2), arterial 81.1 mmHg (> 70.0); Potassium - ABG Lab 3.49 mmol/L (3.70-5.30); pH, Arterial 7.38 (7.35-7.45)
[2021-04-06 07:17] LABS: Puncture Site RRA
[2021-04-06 07:18] LABS: #Lymphocytes 0.5 thou/uL (1.20-3.40); #Monocytes 0.8 thou/uL (0.11-0.59); #Neutrophils 10.3 thou/uL (1.40-6.50); %Basophils 0.1 % (0.0-1.0); %Eosinophils 0.2 % (0.0-10.0); %Lymphocytes 4.4 % (21.0-51.0); %Monocytes 6.6 % (0.0-10.0); %Neutrophils 88.7 % (42.0-75.0); Hemoglobin 9.5 g/dL (12.0-16.0); Mean Corpuscular HGB CONC 33.7 g/dL (32.0-36.0); Mean Corpuscular Hemoglobin 33.7 pg (27.0-31.0); Mean Platelet Volume 6.1 fL (7.4-10.4); Platelet Count 210 thou/uL (130-400); RBC Distribution Width 15.1 % (11.5-14.5); Red Blood Cell (RBC) Count 2.82 mill/uL (4.20-5.40); White Blood Cell (WBC) Count 11.6 thou/uL (4.8-10.8)
[2021-04-06] MEDS: Ipratropium Bromide 2.5 ml Neb NEB SCH ×3 (07:18→18:07)
[2021-04-06] MEDS: Mometasone 200 MCG/Formoterol 5 MCG 120 PUFF INHALER INH SCH ×2 (07:18→18:07)
[2021-04-06 07:43] LABS: ALT (SGPT) 68 U/L (8-55); AST (SGOT) 35 U/L (5-34); Albumin 2.4 g/dL (3.4-4.8); Alkaline Phosphatase 70 U/L (40-110); BUN (Urea Nitrogen) 11 mg/dL (9.8-20.1); Bilirubin, Total 0.3 mg/dL (0.2-1.2); Calc. Creatinine Clearance 147 mL/min (70-130); Calcium 8.3 mg/dL (7.8-10.44); Globulin 1.8 g/dL (2.4-3.5); Glucose 132 mg/dL (83-110); Magnesium 2.1 mg/dL (1.6-2.6); Phosphorus 2.6 mg/dL (2.3-4.7); Protein, Total 4.2 g/dL (5.8-8.1)
[2021-04-06 07:49] LABS: Anion Gap 11 mmol/L (10-20); Chloride 94 mmol/L (98-107); Potassium 3.6 mmol/L (3.5-5.1); Sodium 143 mmol/L (136-145)
[2021-04-06 07:52] LABS: Carbon Dioxide 42 mmol/L (23-31)
[2021-04-06] MEDS: QUERCETIN WITH BROMELAIN PO SCH ×2 (09:11→16:42)
[2021-04-06] MEDS: Cholecalciferol (Vitamin D3) 400 UNITS TAB PO SCH (09:11)
[2021-04-06] MEDS: Ascorbic Acid 500 mg Chewable Tablet PO SCH (09:11)
[2021-04-06] MEDS: Metoprolol Tartrate 25 MG TAB PO SCH ×3 (09:12→22:15)
[2021-04-06] MEDS: Famotidine 20 MG TAB PO SCH ×2 (09:12→21:12)
[2021-04-06] MEDS: Senokot S 8.6-50 MG TAB PO SCH ×2 (09:12→21:12)
[2021-04-06] MEDS: Aspirin Chewable 81 MG TAB PO SCH (09:12)
[2021-04-06] MEDS: Saccharomyces boulardii 250 MG CAP PO SCH (09:12)
[2021-04-06] MEDS: Zinc Sulfate 220 MG CAP PO SCH (09:12)
[2021-04-06] MEDS: Enoxaparin Sodium 40 MG/0.4 ML SYRINGE SC SCH ×2 (09:24→21:11)
[2021-04-06] MEDS: Piperacillin/Tazobactam 3.375 GM in Sodium Chloride 0.9% 100 ML IVPB SCH ×3 (09:24→23:30)
[2021-04-06] MEDS: Dexamethasone 10 MG/ML VIAL SLOW IVP SCH ×2 (09:24→21:12)
[2021-04-07] MEDS: Vancomycin 1 GM in Premix Bag 1 BAG IVPB SCH ×2 (03:38→14:05)
[2021-04-07 04:17] LABS: #Lymphocytes 0.3 thou/uL (1.20-3.40); #Monocytes 0.5 thou/uL (0.11-0.59); #Neutrophils 12.8 thou/uL (1.40-6.50); %Basophils 0.3 % (0.0-1.0); %Eosinophils 0.3 % (0.0-10.0); %Lymphocytes 2.2 % (21.0-51.0); %Monocytes 3.8 % (0.0-10.0); %Neutrophils 93.3 % (42.0-75.0); Hemoglobin 9.5 g/dL (12.0-16.0); Mean Corpuscular HGB CONC 33.1 g/dL (32.0-36.0); Mean Corpuscular Hemoglobin 33.7 pg (27.0-31.0); Mean Platelet Volume 6.4 fL (7.4-10.4); Platelet Count 226 thou/uL (130-400); RBC Distribution Width 15.3 % (11.5-14.5); Red Blood Cell (RBC) Count 2.82 mill/uL (4.20-5.40); White Blood Cell (WBC) Count 13.7 thou/uL (4.8-10.8)
[2021-04-07 04:42] LABS: ALT (SGPT) 66 U/L (8-55); AST (SGOT) 36 U/L (5-34); Albumin 2.4 g/dL (3.4-4.8); Alkaline Phosphatase 74 U/L (40-110); BUN (Urea Nitrogen) 12 mg/dL (9.8-20.1); Bilirubin, Total 0.5 mg/dL (0.2-1.2); Calc. Creatinine Clearance 147 mL/min (70-130); Globulin 1.9 g/dL (2.4-3.5); Glucose 142 mg/dL (83-110); Phosphorus 2.6 mg/dL (2.3-4.7); Protein, Total 4.3 g/dL (5.8-8.1)
[2021-04-07] MEDS: Vecuronium 10 MG VIAL IVP PRN ×3 (04:47→20:39)
[2021-04-07 04:51] LABS: Chloride 93 mmol/L (98-107); Sodium 142 mmol/L (136-145)
[2021-04-07 04:54] LABS: Anion Gap 10 mmol/L (10-20)
[2021-04-07 05:06] LABS: Carbon Dioxide 43 mmol/L (23-31)
[2021-04-07] MEDS ORDERED: Morphine 2 MG/ML VIAL SLOW IVP PRN (06:48)
[2021-04-07] MEDS ORDERED: Fentanyl BOLUS 250 ML IVPB PRN (06:48)
[2021-04-07] MEDS: Mometasone 200 MCG/Formoterol 5 MCG 120 PUFF INHALER INH SCH ×2 (07:00→17:49)
[2021-04-07] MEDS: Ipratropium Bromide 2.5 ml Neb NEB SCH ×3 (07:00→17:49)
[2021-04-07 07:19] LABS: Actual Bicarbonate (HCO3a) 45.6 mEq/L (22-28); Base Excess (BEa) 16.9 mEq/L (-2.0 to +3.0); Calcium, Ionized (arterial) 1.14 mmol/L (1.12-1.30); Carboxyhemoglobin (COHb) 0.4 gm% (0.0-3.0); Hemoglobin (Hb) 9.9 g/dL (12.0-16.0); O2 Tension (PaO2), arterial 89.8 mmHg (> 70.0); pH, Arterial 7.35 (7.35-7.45)
[2021-04-07 07:20] LABS: ALV-art Gradient 302.675 mmHg (0-20); CO2 Tension 85.3 mmHg (35.0-45.0); Puncture Site RRA
[2021-04-07] MEDS: Saccharomyces boulardii 250 MG CAP PO SCH (08:22)
[2021-04-07] MEDS: Metoprolol Tartrate 25 MG TAB PO SCH ×2 (08:22→20:39)
[2021-04-07] MEDS: Famotidine 20 MG TAB PO SCH ×2 (08:22→20:39)
[2021-04-07] MEDS: Cholecalciferol (Vitamin D3) 400 UNITS TAB PO SCH (08:22)
[2021-04-07] MEDS: Ascorbic Acid 500 mg Chewable Tablet PO SCH (08:22)
[2021-04-07] MEDS: Senokot S 8.6-50 MG TAB PO SCH ×2 (08:22→20:39)
[2021-04-07] MEDS: Aspirin Chewable 81 MG TAB PO SCH (08:22)
[2021-04-07] MEDS: Zinc Sulfate 220 MG CAP PO SCH (08:23)
[2021-04-07] MEDS: Piperacillin/Tazobactam 3.375 GM in Sodium Chloride 0.9% 100 ML IVPB SCH ×2 (08:23→15:12)
[2021-04-07] MEDS: Enoxaparin Sodium 40 MG/0.4 ML SYRINGE SC SCH ×2 (08:23→20:39)
[2021-04-07] MEDS: QUERCETIN WITH BROMELAIN PO SCH ×2 (08:23→16:40)
[2021-04-07] MEDS: Dexamethasone 10 MG/ML VIAL SLOW IVP SCH ×2 (08:23→20:39)
[2021-04-07] MEDS: Propofol 1,000 MG/100 ML VIAL IV PRN ×2 (08:26→15:13)
[2021-04-07] MEDS: fentaNYL 75 mcg/hour Patch TD SCH (10:24)
[2021-04-07] MEDS: HumaLOG 300 UNITS/3 ML VIAL SC PRN ×2 (11:02→22:10)
[2021-04-07] MEDS ORDERED: Fentanyl CADD 100 ML ONE (13:44)
[2021-04-07] MEDS: Norepinephrine 8 MG/0.9% NS 250 ML IVPB PRN (13:49)
[2021-04-07] MEDS: Fentanyl CADD 100 ML IV SCH (13:49)
[2021-04-08] MEDS: Propofol 1,000 MG/100 ML VIAL IV PRN ×3 (00:51→16:29)
[2021-04-08] MEDS: Piperacillin/Tazobactam 3.375 GM in Sodium Chloride 0.9% 100 ML IVPB SCH (00:51)
[2021-04-08 02:23] LABS: Vancomycin, Trough 10.1 ug/mL
[2021-04-08] MEDS: VANCOMYCIN 1.25 GM/250 ML BAG 1.25 GM in Premix Bag 1 BAG IVPB SCH ×2 (03:41→15:30)
[2021-04-08 04:29] LABS: #Lymphocytes 0.3 thou/uL (1.20-3.40); #Monocytes 0.7 thou/uL (0.11-0.59); #Neutrophils 11.5 thou/uL (1.40-6.50); %Basophils 0.1 % (0.0-1.0); %Eosinophils 0.1 % (0.0-10.0); %Lymphocytes 2.7 % (21.0-51.0); %Monocytes 5.5 % (0.0-10.0); %Neutrophils 91.6 % (42.0-75.0); Hemoglobin 8.9 g/dL (12.0-16.0); Mean Corpuscular Hemoglobin 33.6 pg (27.0-31.0); Mean Platelet Volume 6.2 fL (7.4-10.4); Platelet Count 203 thou/uL (130-400); RBC Distribution Width 15.5 % (11.5-14.5); Red Blood Cell (RBC) Count 2.66 mill/uL (4.20-5.40); White Blood Cell (WBC) Count 12.5 thou/uL (4.8-10.8)
[2021-04-08] MEDS: Vecuronium 10 MG VIAL IVP PRN ×4 (04:44→23:41)
[2021-04-08 04:53] LABS: ALT (SGPT) 60 U/L (8-55); AST (SGOT) 26 U/L (5-34); Albumin 2.3 g/dL (3.4-4.8); Alkaline Phosphatase 72 U/L (40-110); BUN (Urea Nitrogen) 12 mg/dL (9.8-20.1); Bilirubin, Total 0.4 mg/dL (0.2-1.2); Calc. Creatinine Clearance 150 mL/min (70-130); Calcium 7.9 mg/dL (7.8-10.44); Globulin 1.9 g/dL (2.4-3.5); Glucose 127 mg/dL (83-110); Phosphorus 2.1 mg/dL (2.3-4.7); Protein, Total 4.2 g/dL (5.8-8.1)
[2021-04-08 05:02] LABS: Anion Gap 13 mmol/L (10-20); Chloride 93 mmol/L (98-107); Potassium 3.9 mmol/L (3.5-5.1); Sodium 144 mmol/L (136-145)
[2021-04-08 05:05] LABS: Carbon Dioxide 42 mmol/L (23-31)
[2021-04-08] MEDS: Ipratropium Bromide 2.5 ml Neb NEB SCH ×3 (06:35→17:57)
[2021-04-08] MEDS: Mometasone 200 MCG/Formoterol 5 MCG 120 PUFF INHALER INH SCH ×2 (06:36→17:57)
[2021-04-08] MEDS: Dexmedetomidine 1,000 MCG in Sodium Chloride 0.9% 250 ML 240 ML IVPB SCH (06:56)
[2021-04-08 07:32] VITALS: BMI 29.3
[2021-04-08] MEDS: QUERCETIN WITH BROMELAIN PO SCH ×2 (08:01→15:29)
[2021-04-08] MEDS: Enoxaparin Sodium 40 MG/0.4 ML SYRINGE SC SCH ×2 (08:02→20:11)
[2021-04-08] MEDS: Saccharomyces boulardii 250 MG CAP PO SCH (08:03)
[2021-04-08] MEDS: Aspirin Chewable 81 MG TAB PO SCH (08:04)
[2021-04-08] MEDS: Dexamethasone 10 MG/ML VIAL SLOW IVP SCH ×2 (08:04→20:12)
[2021-04-08] MEDS: Famotidine 20 MG TAB PO SCH ×2 (08:04→20:11)
[2021-04-08] MEDS: Ascorbic Acid 500 mg Chewable Tablet PO SCH (08:04)
[2021-04-08] MEDS: Zinc Sulfate 220 MG CAP PO SCH (08:04)
[2021-04-08] MEDS: Cholecalciferol (Vitamin D3) 400 UNITS TAB PO SCH (08:04)
[2021-04-08] MEDS: Senokot S 8.6-50 MG TAB PO SCH ×2 (08:04→20:11)
[2021-04-08 08:05] LABS: Actual Bicarbonate (HCO3a) 48.2 mEq/L (22-28); Base Excess (BEa) 19.5 mEq/L (-2.0 to +3.0); Calcium, Ionized (arterial) 1.08 mmol/L (1.12-1.30); Carboxyhemoglobin (COHb) 1.3 gm% (0.0-3.0); Hemoglobin (Hb) 8.8 g/dL (12.0-16.0); O2 Tension (PaO2), arterial 113.1 mmHg (> 70.0); Potassium - ABG Lab 3.55 mmol/L (3.70-5.30); pH, Arterial 7.35 (7.35-7.45)
[2021-04-08] MEDS: Metoprolol Tartrate 25 MG TAB PO SCH ×3 (08:05→21:17)
[2021-04-08 08:35] LABS: ALV-art Gradient 273.125 mmHg (0-20); CO2 Tension 90.3 mmHg (35.0-45.0); Puncture Site RRA
[2021-04-08] MEDS: Lorazepam 2 MG/ML VIAL SLOW IVP PRN ×2 (12:21→22:39)
[2021-04-08] MEDS: HumaLOG 300 UNITS/3 ML VIAL SC PRN (22:48)
[2021-04-09] MEDS: Dexmedetomidine 1,000 MCG in Sodium Chloride 0.9% 250 ML 240 ML IVPB SCH (00:08)
[2021-04-09] MEDS: Vecuronium 10 MG VIAL IVP PRN ×2 (01:32→05:09)
[2021-04-09] MEDS ORDERED: Fentanyl CADD 100 ML ONE (02:38)
[2021-04-09] MEDS: VANCOMYCIN 1.25 GM/250 ML BAG 1.25 GM in Premix Bag 1 BAG IVPB SCH (02:40)
[2021-04-09] MEDS: Fentanyl CADD 100 ML IV SCH (02:41)
[2021-04-09] MEDS: Propofol 1,000 MG/100 ML VIAL IV PRN ×2 (03:37→09:04)
[2021-04-09] MEDS: Lorazepam 2 MG/ML VIAL SLOW IVP PRN ×2 (04:55→14:57)
[2021-04-09 05:02] LABS: Band 5 % (5-11); Hemoglobin 9.1 g/dL (12.0-16.0); Hypochromia SLIGHT = 6-15 cells (100X) (0-5/hpf); Lymphocytes 7 % (21-51); MDiff Complete? YES; Macrocytosis SLIGHT = 6-15 cells (100X) (0-5/hpf); Mean Corpuscular HGB CONC 31.5 g/dL (32.0-36.0); Mean Corpuscular Hemoglobin 31.9 pg (27.0-31.0); Mean Platelet Volume 6.4 fL (7.4-10.4); Monocytes 11 % (0-10); Neutrophil 77 % (42-75); Platelet Count 179 thou/uL (130-400); Platelet Morphology Comment Appears Adequate; RBC Distribution Width 15.4 % (11.5-14.5); Red Blood Cell (RBC) Count 2.86 mill/uL (4.20-5.40); White Blood Cell (WBC) Count 11.3 thou/uL (4.8-10.8)
[2021-04-09] MEDS: Ipratropium Bromide 2.5 ml Neb NEB SCH ×2 (07:05→12:40)
[2021-04-09] MEDS: Mometasone 200 MCG/Formoterol 5 MCG 120 PUFF INHALER INH SCH (07:05)
[2021-04-09 08:25] VITALS: TEMP 97.9
[2021-04-09] MEDS: QUERCETIN WITH BROMELAIN PO SCH (08:49)
[2021-04-09] MEDS ORDERED: Dexamethasone 4 mg/ml Vial SLOW IVP SCH (09:00)
[2021-04-09] MEDS: Ascorbic Acid 500 mg Chewable Tablet PO SCH (09:05)
[2021-04-09] MEDS: Cholecalciferol (Vitamin D3) 400 UNITS TAB PO SCH (09:08)
[2021-04-09] MEDS: Aspirin Chewable 81 MG TAB PO SCH (09:08)
[2021-04-09] MEDS: Enoxaparin Sodium 40 MG/0.4 ML SYRINGE SC SCH (09:08)
[2021-04-09] MEDS: Saccharomyces boulardii 250 MG CAP PO SCH (09:13)
[2021-04-09] MEDS: Famotidine 20 MG TAB PO SCH (09:13)
[2021-04-09] MEDS: Zinc Sulfate 220 MG CAP PO SCH (09:13)
[2021-04-09] MEDS: Metoprolol Tartrate 25 MG TAB PO SCH (09:13)
[2021-04-09] MEDS: Senokot S 8.6-50 MG TAB PO SCH (09:13)
[2021-04-09] MEDS ORDERED: Morphine 4 MG/ML VIAL SLOW IVP PRN (14:20)
[2021-04-09 14:25] VITALS: BP 153/78
== END 2021-04-09 15:02 | disposition hospice, inpatient (51) | DRG 4 ==
LOC: ERS 22:15 → ERHOLD 23:23 → T4-A 03-05 07:35 → IMCU/EMU 03-12 18:21 → T4-B 03-21 13:54 → CCU 03-27 06:37
PROVIDERS: ADMIT Internal Medicine; ATTEND Internal Medicine
PROC: 8E0ZXY6 Isolation (ICD-10-PCS; 2021-03-04)
PROC: 3E0333Z Introduction of Anti-inflammatory into Peripheral Vein, Percutaneous Approach (ICD-10-PCS; 2021-03-04)
PROC: XW0DXM6 Introduction of Baricitinib into Mouth and Pharynx, External Approach, New Technology Group 6 (ICD-10-PCS; 2021-03-05)
PROC: XW033E5 Introduction of Remdesivir Anti-infective into Peripheral Vein, Percutaneous Approach, New Technology Group 5 (ICD-10-PCS; 2021-03-05)
PROC: XW033H5 Introduction of Tocilizumab into Peripheral Vein, Percutaneous Approach, New Technology Group 5 (ICD-10-PCS; 2021-03-05)
PROC: 5A09357 Assistance with Respiratory Ventilation, Less than 24 Consecutive Hours, Continuous Positive Airway Pressure (ICD-10-PCS; principal; 2021-03-27)
PROC: 5A1955Z Respiratory Ventilation, Greater than 96 Consecutive Hours (ICD-10-PCS; 2021-03-27)
PROC: 0BH17EZ Insertion of Endotracheal Airway into Trachea, Via Natural or Artificial Opening (ICD-10-PCS; 2021-03-27)
PROC: 0DH67UZ Insertion of Feeding Device into Stomach, Via Natural or Artificial Opening (ICD-10-PCS; 2021-03-27)
PROC: 3E033XZ Introduction of Vasopressor into Peripheral Vein, Percutaneous Approach (ICD-10-PCS; 2021-03-27)
PROC: 0B113F4 Bypass Trachea to Cutaneous with Tracheostomy Device, Percutaneous Approach (ICD-10-PCS; 2021-04-03)
PROC: 0DH63UZ Insertion of Feeding Device into Stomach, Percutaneous Approach (ICD-10-PCS; 2021-04-03)
DX: A41.89 Other specified sepsis (principal); U07.1 COVID-19; J12.82 Pneumonia due to coronavirus disease 2019; J80 Acute respiratory distress syndrome; E87.1 Hypo-osmolality and hyponatremia; E44.0 Moderate protein-calorie malnutrition; E87.3 Alkalosis; Z66 Do not resuscitate; E87.5 Hyperkalemia; E87.6 Hypokalemia; T50.0X5A Adverse effect of mineralocorticoids and their antagonists, initial encounter; T38.0X5A Adverse effect of glucocorticoids and synthetic analogues, initial encounter; I10 Essential (primary) hypertension; M19.90 Unspecified osteoarthritis, unspecified site; M81.0 Age-related osteoporosis without current pathological fracture; Z96.649 Presence of unspecified artificial hip joint; Z96.651 Presence of right artificial knee joint; F41.9 Anxiety disorder, unspecified; K59.01 Slow transit constipation; L89.152 Pressure ulcer of sacral region, stage 2; J84.10 Pulmonary fibrosis, unspecified; I95.9 Hypotension, unspecified; R73.9 Hyperglycemia, unspecified; I49.1 Atrial premature depolarization; I48.0 Paroxysmal atrial fibrillation; Z78.1 Physical restraint status; Z68.29 Body mass index [BMI] 29.0-29.9, adult; Z88.8 Allergy status to other drugs, medicaments and biological substances; Z88.1 Allergy status to other antibiotic agents; Z91.040 Latex allergy status; Z79.01 Long term (current) use of anticoagulants; Z79.82 Long term (current) use of aspirin; Z79.899 Other long term (current) drug therapy; Z86.718 Personal history of other venous thrombosis and embolism
CPT/HCPCS: 31624; 36415; 36416; 36600; 70450; 71045; 71250; 71275; 74018; 80048; 80053; 80069; 80202; 81001; 82565; 82805; 83605; 83735; 83880; 84100; 84145; 84484; 85007; 85025; 85027; 85379; 86140; 87040; 87086; 93005; 93010; 93306; 93970; 94002; 94003; 94640; 94660; 94664; 94760; 96365; 96375; J0690; J0692; J1100; J1120; J1650; J1815; J1885; J1940; J2060; J2185; J2270; J2543; J2704; J3010; J3370; J3490; J7050; J7120; Q9967

== ENCOUNTER 2021-04-09 15:02 | Inpatient (IN) | payer OTHER ==
[2021-04-09] MEDS ORDERED: Lorazepam 2 MG/ML VIAL SLOW IVP PRN ×2 (15:52→16:30)
[2021-04-09] MEDS ORDERED: Morphine 4 MG/ML VIAL SLOW IVP PRN ×2 (15:54→16:30)
[2021-04-09] MEDS ORDERED: Acetaminophen 650 MG Suppository PR PRN (16:00)
[2021-04-09] MEDS ORDERED: Ondansetron PF 4 MG/2 ML Vial IVP PRN (16:00)
[2021-04-09] MEDS ORDERED: Scopolamine 1.5 mg/72 hour Patch TOP PRN (16:00)
[2021-04-09] MEDS ORDERED: Morphine 4 MG/ML VIAL SLOW IVP SCH (16:00)
== END 2021-04-09 18:13 | disposition expired | DRG 951 ==
LOC: CCU 15:02
PROVIDERS: ADMIT Family Medicine; ATTEND Family Medicine
DX: Z51.5 Encounter for palliative care (principal); U07.1 COVID-19; J12.82 Pneumonia due to coronavirus disease 2019; J96.01 Acute respiratory failure with hypoxia; E44.0 Moderate protein-calorie malnutrition; Z86.718 Personal history of other venous thrombosis and embolism; I48.0 Paroxysmal atrial fibrillation
CPT/HCPCS: J2060; J2270